=== PATIENT | female | born 1950 | race American Indian/Alaskan Native ===

== ENCOUNTER 2019-04-12 21:43 | Inpatient (IN) | payer MEDICARE ==
--- NOTE | 2019-04-12 21:48 | Emergency Department Report ---
ED Neuro Deficit HPI - General Chief Complaint: Neuro Symptoms/Deficit Stated Complaint: STROKE Time Seen by Provider: 04/12/19 21:45 Source: family, EMS (verbal report received from EMS. EMS documentation not available at time of chart dictation ), RN notes reviewed Mode of arrival: Stretcher Limitations: Physical Limitation - History of Present Illness Initial Comments: This is a 68-year-old female. This patient is not known to this provider previo usly. History obtained from EMS, and the patient's daughter. Apparently, the patient has a history of dementia, presumably end-stage, cannot speak, cannot walk and is typically bedbound. Patient not able to follow commands, and is therefore not able to participate in physical therapy. She may also have a history of seizures, and was previously on Keppra, and is not currently on Keppra. Patient brought to the hospital by EMS for possible code stroke. As per verbal report from EMS, who reports verbal report from the patient's residential, last known well time is 7:30 PM this evening, apparently, patient was found or developed altered mental status at 7:30 PM, and was found to have a lef t-sided facial droop and right-sided weakness. Patient's Accu-Chek was 184 in the field. Upon arrival to the emergency room, no obvious facial droop is appreciated. She is moving her right arm sluggishly. She has nonspecific clonic movements in her bilateral lower extremities. Stroke is called overhead, and the patient is evaluated by our stroke neurologist, Dr. Paredes He called up the patient's residential, and establish the last known well time to be sometime between 4:00 and 5:30 PM this afternoon. In addition, there may been a convulsive event. The patient is accompanied by her daughter. The patient is nonverbal at this time. She is now moving 4 extremities. She moans in response to painful stimulus. She is protecting her airway. Patient not able to describe exacerbating or relieving factors, or qualitative nature of her symptoms. -: This afternoon Location: other Place: other Quality: other Improves With: other Worsens With: other Context: other - Related Data Home Medications: Home Medications Medication Instructions Recorded Confirmed Last Taken Aleve 220 mg PO BID PRN 04/13/19 04/13/19 Unknown Aspirin 81 mg PO DAILY 04/13/19 04/13/19 Unknown Memantine 28 mg PO DAILY 04/13/19 04/13/19 Unknown Metoprolol SUCCINATE ER TAB 50 mg PO DAILY 04/13/19 04/13/19 Unknown Pantoprazole 40 mg PO DAILY 04/13/19 04/13/19 Unknown Sertraline HCl 100 mg PO HS 04/13/19 04/13/19 Unknown Simvastatin 20 mg PO DAILY 04/13/19 04/13/19 Unknown Allergies/Adverse Reactions: Allergies Allergy/AdvReac Type Severity Reaction Status Date / Time No Known Allergies Allergy Verified 04/12/19 22:29 ED Review of Systems ROS: Stated complaint: STROKE Other details as noted in HPI Comment: Unobtainable due to pts medical conditions Neurological: confusion, other (convulsion, possible seizure, altered mental status) ED Past Medical Hx - Medications Home Medications: Home Medications Medication Instructions Recorded Confirmed Last Taken Type Aleve 220 mg PO BID PRN 04/13/19 04/13/19 Unknown History Aspirin 81 mg PO DAILY 04/13/19 04/13/19 Unknown History Memantine 28 mg PO DAILY 04/13/19 04/13/19 Unknown History Metoprolol SUCCINATE ER TAB 50 mg PO DAILY 04/13/19 04/13/19 Unknown History Pantoprazole 40 mg PO DAILY 04/13/19 04/13/19 Unknown History Sertraline HCl 100 mg PO HS 04/13/19 04/13/19 Unknown History Simvastatin 20 mg PO DAILY 04/13/19 04/13/19 Unknown History ED Neuro Physical Exam - General Limitations: Altered Mental Status, Physical Limitation General appearance: lethargic Suspected Stroke: No - Head Head exam: Present: atraumatic, normocephalic - Eye Eye exam: Present: normal appearance, PERRL - ENT ENT exam: Present: normal orophraynx, mucous membranes dry, normal external ear exam - Neck Neck exam: Present: normal inspection, full ROM. Absent: tenderness, meningismus - Respiratory Respiratory exam: Present: decreased breath sounds. Absent: respiratory distress, wheezes, rales, rhonchi, stridor - Cardiovascular Cardiovascular Exam: Present: regular rate, normal rhythm, normal heart sounds. Absent: bradycardia, tachycardia, irregular rhythm, systolic murmur, diastolic murmur, rubs, gallop - GI/Abdominal GI/Abdominal exam: Present: soft. Absent: distended, tenderness, guarding, rebound, rigid, pulsatile mass - Extremities Exam Extremities exam: Present: normal inspection, pedal edema, other (2+ pulses noted in the bilateral upper, lower extremities. There is no long bone tenderness. Musculoskeletal compartments are soft. The pelvis is stable.). Absent: calf tenderness - Back Exam Back exam: Present: normal inspection. Absent: tenderness, CVA tenderness (R), CVA tenderness (L), paraspinal tenderness, vertebral tenderness - Neurological Exam Neurological exam: Present: altered, other (there is no facial droop. Patient withdraws for cavities to painful stimuli. She is nonverbal. Detailed neurologic examination is not possible secondary to altered mental status, and dementia) - NIHSS Assessment Interval: Baseline 1a. Level of Consciousness: arousable/minor stimuli 1b. LOC Questions: answers no questions correctly 1c. LOC Commands: performs no tasks correctly 2. Best Gaze: forced deviation (unable to assess) 3. Visual: bilateral hemianopia (unable to assess) 4. Facial Palsy: normal symmetrical movement 5b. Motor Arm Right: some gravity effort 5a. Motor Arm Left: some gravity effort 6a. Motor Leg Left: some gravity effort 6b. Motor Leg Right: some gravity effort 7. Limb Ataxia: amputation (unable to assess) 8. Sensory: mild/moderate sensory loss (withdraws to painful stimuli) 9. Best Language: severe aphasia (the patient is nonverbal but grossly response to painful stimuli) 10. Dysarthria: mild/moderate dysarthria 11. Extinction/Inattention: profound inattention Total Score: 24 Stroke Severity: Severe Stroke - Psychiatric Psychiatric exam: Present: anxious - Skin Skin exam: Present: warm, dry, intact, normal color. Absent: rash ED Course Vital Signs 04/12/19 04/12/19 04/12/19 21:47 21:59 22:00 Temperature 98.6 F 98.6 F Pulse Rate 81 Respiratory 19 16 Rate Blood Pressure O2 Sat by Pulse 99 Oximetry 04/12/19 04/12/19 04/12/19 22:16 22:30 22:45 Temperature Pulse Rate 80 78 74 Respiratory 21 33 H 21 Rate Blood Pressure 149/77 163/95 137/110 O2 Sat by Pulse 99 94 98 Oximetry 04/12/19 04/12/19 04/12/19 23:00 23:16 23:30 Temperature Pulse Rate 82 83 74 Respiratory 18 19 18 Rate Blood Pressure 137/110 171/90 161/88 O2 Sat by Pulse 98 96 99 Oximetry 04/12/19 04/12/19 04/13/19 23:31 23:50 00:00 Temperature Pulse Rate 81 Respiratory 10 L Rate Blood Pressure 161/88 161/88 161/88 O2 Sat by Pulse 98 95 Oximetry 04/13/19 04/13/19 04/13/19 00:16 00:18 00:30 Temperature Pulse Rate 81 Respiratory 20 Rate Blood Pressure 171/99 171/99 161/88 O2 Sat by Pulse 99 100 98 Oximetry 04/13/19 04/13/19 04/13/19 00:45 01:00 01:15 Temperature Pulse Rate 72 68 83 Respiratory 25 H 16 24 Rate Blood Pressure 169/106 159/87 159/87 O2 Sat by Pulse 99 100 95 Oximetry 04/13/19 04/13/19 04/13/19 01:30 01:46 02:00 Temperature Pulse Rate 104 H 73 80 Respiratory 26 H 21 27 H Rate Blood Pressure 152/107 152/100 153/90 O2 Sat by Pulse 93 98 90 Oximetry 04/13/19 04/13/19 04/13/19 02:16 02:30 02:46 Temperature Pulse Rate 86 105 H 72 Respiratory 16 18 18 Rate Blood Pressure 139/96 149/106 154/81 O2 Sat by Pulse 98 96 100 Oximetry 04/13/19 04/13/19 04/13/19 03:00 03:16 03:30 Temperature 98.4 F Pulse Rate 81 91 H 89 Respiratory 25 H 13 18 Rate Blood Pressure 158/92 136/107 153/103 O2 Sat by Pulse 92 94 96 Oximetry 04/13/19 04/13/19 04/13/19 03:46 04:00 04:16 Temperature Pulse Rate 117 H 75 81 Respiratory 12 17 14 Rate Blood Pressure 144/62 131/71 139/80 O2 Sat by Pulse 93 99 100 Oximetry 04/13/19 04/13/19 04/13/19 04:30 04:46 05:00 Temperature Pulse Rate 83 81 70 Respiratory 17 21 16 Rate Blood Pressure 138/104 123/94 136/64 O2 Sat by Pulse 98 96 99 Oximetry 04/13/19 05:16 Temperature Pulse Rate 74 Respiratory 21 Rate Blood Pressure 131/87 O2 Sat by Pulse 99 Oximetry - Reevaluation(s) Reevaluation #1: 04/12/19 22:41 Differential diagnosis, including but not limited to: Stroke, seizure, pneumonia, urinary tract infection, dementia, myoclonic jerks, electrolyte derangement Assessment and plan: 68-year-old female, demented, nonverbal, bedbound, very poor functional status at baseline, not a TPA candidate secondary to presenting more than 4.5 hours after last known well time. Suspect the patient had a seizure, and was likely postictal. Patient seen in conjunction with stroke neurologist, Dr. Paredes who agrees the patient is not a TPA candidate. Furthermore, discussed risks of tPA, including benefits, with patient's daughter, who states that she does not want TPA. Even though the patient is bed bound, demented, and poorly mobile, and emergent CT angiogram is recommended to evaluate for possible large vessel occlusion. Patient not able to provide informed consent, therefore, patient started myself discussed the risks and benefits, including contrast nephropathy, renal failure, need for dialysis, and possible allergic reaction/anaphylaxis. Nevertheless, the patient's daughter has provided informed consent for emergent CT angiogram. Patient loaded with Keppra. Initial CT scan of the brain had a lot of motion artifact, therefore, she'll be medicated with versed Reevaluation #2: 04/12/19 22:44 Magnesium supplementation ordered. Elevated troponin likely secondary to type II troponin leak. EKG not consistent with STEMI. Reevaluation #3: 04/13/19 00:07 X-ray of the chest is reviewed and appreciated. Patient does not have crackles or rales. IV fluids were ordered given the patient is receiving large contrast bolus for angiogram. Reevaluation #4: 04/13/19 01:31 No additional seizures noted so far. CT angiogram neck is negative at this ti me. CT angiogram limited, no gross large vessel occlusion noted. Reevaluation #5: 04/13/19 01:47 Dr Erich Dewey to admit - Lab Data Result diagrams: 04/12/19 21:59 04/12/19 21:59 Lab Results 04/12/19 04/12/19 04/12/19 Range/Units 21:59 21:59 21:59 WBC 4.9 (4.5-11.0) K/mm3 RBC 4.32 (3.65-5.03) M/mm3 Hgb 11.8 (10.1-14.3) gm/dl Hct 38.0 (30.3-42.9) % MCV 88 (79-97) fl MCH 27 L (28-32) pg MCHC 31 (30-34) % RDW 18.7 H (13.2-15.2) % Plt Count 171 (140-440) K/mm3 Lymph % (Auto) 25.8 (13.4-35.0) % [place] % (Auto) 8.1 H (0.0-7.3) % Eos % (Auto) 0.0 (0.0-4.3) % Baso % (Auto) 1.0 (0.0-1.8) % Lymph # 1.3 (1.2-5.4) K/mm3 [place] # 0.4 (0.0-0.8) K/mm3 Eos # 0.0 (0.0-0.4) K/mm3 Baso # 0.0 (0.0-0.1) K/mm3 Seg Neutrophils % 65.1 (40.0-70.0) % Seg Neutrophils # 3.2 (1.8-7.7) K/mm3 PT 19.4 H (12.2-14.9) Sec. INR 1.68 H (0.87-1.13) APTT 27.7 (24.2-36.6) Sec. Thrombin Time 16.5 (15.1-19.6) Sec. Sodium 144 (137-145) mmol/L Potassium 3.8 (3.6-5.0) mmol/L Chloride 107.1 H (98-107) mmol/L Carbon Dioxide 20 L (22-30) mmol/L Anion Gap 21 mmol/L BUN 16 (7-17) mg/dL Creatinine 0.6 L (0.7-1.2) mg/dL Estimated GFR > 60 ml/min BUN/Creatinine Ratio 27 % Glucose 193 H (65-100) mg/dL POC Glucose (70-105) Calcium 8.9 (8.4-10.2) mg/dL Magnesium (1.7-2.3) mg/dL Total Bilirubin 1.40 H (0.1-1.2) mg/dL AST 27 (5-40) units/L ALT 16 (7-56) units/L Alkaline Phosphatase 74 (35-129) units/L Total Creatine Kinase 93 (30-135) units/L CK-MB (CK-2) 2.3 (0.0-4.0) ng/mL CK-MB (CK-2) Rel Index 2.4 (0-4) Troponin T 0.058 H (0.00-0.029) ng/mL Total Protein 6.2 L (6.3-8.2) g/dL Albumin 3.2 L (3.9-5) g/dL Albumin/Globulin Ratio 1.1 % Triglycerides 116 (2-149) mg/dL Cholesterol 156 (50-199) mg/dL LDL Cholesterol Direct 90 (50-130) mg/dL HDL Cholesterol 55 (40-59) mg/dL Cholesterol/HDL Ratio 2.83 % Urine Color (Yellow) Urine Turbidity (Clear) Urine pH (5.0-7.0) Ur Specific [place] (1.003-1.030) Urine Protein (Negative) mg/dL Urine Glucose (UA) (Negative) mg/dL Urine Ketones (Negative) mg/dL Urine Blood (Negative) Urine Nitrite (Negative) Urine Bilirubin (Negative) Urine Ictotest (Negative) Urine Urobilinogen (<2.0) mg/dL Ur Leukocyte Esterase (Negative) Urine WBC (Auto) (0.0-6.0) /HPF Urine RBC (Auto) (0.0-6.0) /HPF U Epithel Cells (Auto) (0-13.0) /HPF Urine Mucus /HPF Salicylates (2.8-20.0) mg/dL Urine Opiates Screen Urine Methadone Screen Acetaminophen (10.0-30.0) ug/mL Ur Barbiturates Screen Ur Phencyclidine Scrn Ur Amphetamines Screen U Benzodiazepines Scrn Urine Cocaine Screen U Marijuana (THC) Screen Drugs of Abuse Note Plasma/Serum Alcohol (0-0.07) % 04/12/19 04/12/19 04/12/19 Range/Units 21:59 21:59 21:59 WBC (4.5-11.0) K/mm3 RBC (3.65-5.03) M/mm3 Hgb (10.1-14.3) gm/dl Hct (30.3-42.9) % MCV (79-97) fl MCH (28-32) pg MCHC (30-34) % RDW (13.2-15.2) % Plt Count (140-440) K/mm3 Lymph % (Auto) (13.4-35.0) % [place] % (Auto) (0.0-7.3) % Eos % (Auto) (0.0-4.3) % Baso % (Auto) (0.0-1.8) % Lymph # (1.2-5.4) K/mm3 [place] # (0.0-0.8) K/mm3 Eos # (0.0-0.4) K/mm3 Baso # (0.0-0.1) K/mm3 Seg Neutrophils % (40.0-70.0) % Seg Neutrophils # (1.8-7.7) K/mm3 PT (12.2-14.9) Sec. INR (0.87-1.13) APTT (24.2-36.6) Sec. Thrombin Time (15.1-19.6) Sec. Sodium (137-145) mmol/L Potassium (3.6-5.0) mmol/L Chloride (98-107) mmol/L Carbon Dioxide (22-30) mmol/L Anion Gap mmol/L BUN (7-17) mg/dL Creatinine (0.7-1.2) mg/dL Estimated GFR ml/min BUN/Creatinine Ratio % Glucose (65-100) mg/dL POC Glucose (70-105) Calcium (8.4-10.2) mg/dL Magnesium 1.60 L (1.7-2.3) mg/dL Total Bilirubin (0.1-1.2) mg/dL AST (5-40) units/L ALT (7-56) units/L Alkaline Phosphatase (35-129) units/L Total Creatine Kinase 88 (30-135) units/L CK-MB (CK-2) (0.0-4.0) ng/mL CK-MB (CK-2) Rel Index (0-4) Troponin T (0.00-0.029) ng/mL Total Protein (6.3-8.2) g/dL Albumin (3.9-5) g/dL Albumin/Globulin Ratio % Triglycerides (2-149) mg/dL Cholesterol (50-199) mg/dL LDL Cholesterol Direct (50-130) mg/dL HDL Cholesterol (40-59) mg/dL Cholesterol/HDL Ratio % Urine Color (Yellow) Urine Turbidity (Clear) Urine pH (5.0-7.0) Ur Specific [place] (1.003-1.030) Urine Protein (Negative) mg/dL Urine Glucose (UA) (Negative) mg/dL Urine Ketones (Negative) mg/dL Urine Blood (Negative) Urine Nitrite (Negative) Urine Bilirubin (Negative) Urine Ictotest (Negative) Urine Urobilinogen (<2.0) mg/dL Ur Leukocyte Esterase (Negative) Urine WBC (Auto) (0.0-6.0) /HPF Urine RBC (Auto) (0.0-6.0) /HPF U Epithel Cells (Auto) (0-13.0) /HPF Urine Mucus /HPF Salicylates < 0.3 L (2.8-20.0) mg/dL Urine Opiates Screen Urine Methadone Screen Acetaminophen (10.0-30.0) ug/mL Ur Barbiturates Screen Ur Phencyclidine Scrn Ur Amphetamines Screen U Benzodiazepines Scrn Urine Cocaine Screen U Marijuana (THC) Screen Drugs of Abuse Note Plasma/Serum Alcohol < 0.01 (0-0.07) % 04/12/19 04/12/19 04/12/19 Range/Units 21:59 22:06 23:10 WBC (4.5-11.0) K/mm3 RBC (3.65-5.03) M/mm3 Hgb (10.1-14.3) gm/dl Hct (30.3-42.9) % MCV (79-97) fl MCH (28-32) pg MCHC (30-34) % RDW (13.2-15.2) % Plt Count (140-440) K/mm3 Lymph % (Auto) (13.4-35.0) % [place] % (Auto) (0.0-7.3) % Eos % (Auto) (0.0-4.3) % Baso % (Auto) (0.0-1.8) % Lymph # (1.2-5.4) K/mm3 [place] # (0.0-0.8) K/mm3 Eos # (0.0-0.4) K/mm3 Baso # (0.0-0.1) K/mm3 Seg Neutrophils % (40.0-70.0) % Seg Neutrophils # (1.8-7.7) K/mm3 PT (12.2-14.9) Sec. INR (0.87-1.13) APTT (24.2-36.6) Sec. Thrombin Time (15.1-19.6) Sec. Sodium (137-145) mmol/L Potassium (3.6-5.0) mmol/L Chloride (98-107) mmol/L Carbon Dioxide (22-30) mmol/L Anion Gap mmol/L BUN (7-17) mg/dL Creatinine (0.7-1.2) mg/dL Estimated GFR ml/min BUN/Creatinine Ratio % Glucose (65-100) mg/dL POC Glucose 182 H (70-105) Calcium (8.4-10.2) mg/dL Magnesium (1.7-2.3) mg/dL Total Bilirubin (0.1-1.2) mg/dL AST (5-40) units/L ALT (7-56) units/L Alkaline Phosphatase (35-129) units/L Total Creatine Kinase (30-135) units/L CK-MB (CK-2) (0.0-4.0) ng/mL CK-MB (CK-2) Rel Index (0-4) Troponin T (0.00-0.029) ng/mL Total Protein (6.3-8.2) g/dL Albumin (3.9-5) g/dL Albumin/Globulin Ratio % Triglycerides (2-149) mg/dL Cholesterol (50-199) mg/dL LDL Cholesterol Direct (50-130) mg/dL HDL Cholesterol (40-59) mg/dL Cholesterol/HDL Ratio % Urine Color [place] (Yellow) Urine Turbidity Slightly-cloudy (Clear) Urine pH 5.0 (5.0-7.0) Ur Specific [place] 1.032 H (1.003-1.030) Urine Protein 100 mg/dl (Negative) mg/dL Urine Glucose (UA) Neg (Negative) mg/dL Urine Ketones Neg (Negative) mg/dL Urine Blood Lg (Negative) Urine Nitrite Neg (Negative) Urine Bilirubin Sm (Negative) Urine Ictotest Negative (Negative) Urine Urobilinogen 4.0 (<2.0) mg/dL Ur Leukocyte Esterase Neg (Negative) Urine WBC (Auto) 5.0 (0.0-6.0) /HPF Urine RBC (Auto) 56.0 (0.0-6.0) /HPF U Epithel Cells (Auto) 10.0 (0-13.0) /HPF Urine Mucus Few /HPF Salicylates (2.8-20.0) mg/dL Urine Opiates Screen Urine Methadone Screen Acetaminophen < 5.0 L (10.0-30.0) ug/mL Ur Barbiturates Screen Ur Phencyclidine Scrn Ur Amphetamines Screen U Benzodiazepines Scrn Urine Cocaine Screen U Marijuana (THC) Screen Drugs of Abuse Note Plasma/Serum Alcohol (0-0.07) % 04/12/19 Range/Units 23:10 WBC (4.5-11.0) K/mm3 RBC (3.65-5.03) M/mm3 Hgb (10.1-14.3) gm/dl Hct (30.3-42.9) % MCV (79-97) fl MCH (28-32) pg MCHC (30-34) % RDW (13.2-15.2) % Plt Count (140-440) K/mm3 Lymph % (Auto) (13.4-35.0) % [place] % (Auto) (0.0-7.3) % Eos % (Auto) (0.0-4.3) % Baso % (Auto) (0.0-1.8) % Lymph # (1.2-5.4) K/mm3 [place] # (0.0-0.8) K/mm3 Eos # (0.0-0.4) K/mm3 Baso # (0.0-0.1) K/mm3 Seg Neutrophils % (40.0-70.0) % Seg Neutrophils # (1.8-7.7) K/mm3 PT (12.2-14.9) Sec. INR (0.87-1.13) APTT (24.2-36.6) Sec. Thrombin Time (15.1-19.6) Sec. Sodium (137-145) mmol/L Potassium (3.6-5.0) mmol/L Chloride (98-107) mmol/L Carbon Dioxide (22-30) mmol/L Anion Gap mmol/L BUN (7-17) mg/dL Creatinine (0.7-1.2) mg/dL Estimated GFR ml/min BUN/Creatinine Ratio % Glucose (65-100) mg/dL POC Glucose (70-105) Calcium (8.4-10.2) mg/dL Magnesium (1.7-2.3) mg/dL Total Bilirubin (0.1-1.2) mg/dL AST (5-40) units/L ALT (7-56) units/L Alkaline Phosphatase (35-129) units/L Total Creatine Kinase (30-135) units/L CK-MB (CK-2) (0.0-4.0) ng/mL CK-MB (CK-2) Rel Index (0-4) Troponin T (0.00-0.029) ng/mL Total Protein (6.3-8.2) g/dL Albumin (3.9-5) g/dL Albumin/Globulin Ratio % Triglycerides (2-149) mg/dL Cholesterol (50-199) mg/dL LDL Cholesterol Direct (50-130) mg/dL HDL Cholesterol (40-59) mg/dL Cholesterol/HDL Ratio % Urine Color (Yellow) Urine Turbidity (Clear) Urine pH (5.0-7.0) Ur Specific [place] (1.003-1.030) Urine Protein (Negative) mg/dL Urine Glucose (UA) (Negative) mg/dL Urine Ketones (Negative) mg/dL Urine Blood (Negative) Urine Nitrite (Negative) Urine Bilirubin (Negative) Urine Ictotest (Negative) Urine Urobilinogen (<2.0) mg/dL Ur Leukocyte Esterase (Negative) Urine WBC (Auto) (0.0-6.0) /HPF Urine RBC (Auto) (0.0-6.0) /HPF U Epithel Cells (Auto) (0-13.0) /HPF Urine Mucus /HPF Salicylates (2.8-20.0) mg/dL Urine Opiates Screen Presumptive negative Urine Methadone Screen Presumptive negative Acetaminophen (10.0-30.0) ug/mL Ur Barbiturates Screen Presumptive negative Ur Phencyclidine Scrn Presumptive negative Ur Amphetamines Screen Presumptive negative U Benzodiazepines Scrn Presumptive negative Urine Cocaine Screen Presumptive negative U Marijuana (THC) Screen Presumptive negative Drugs of Abuse Note Disclamer Plasma/Serum Alcohol (0-0.07) % - EKG Data -: EKG Interpreted by Ar EKG shows normal: sinus rhythm Rate: normal When compared to previous EKG there are: previous EKG unavailable 04/12/19 22:43 There is no prior EKG available for comparison. This is a sinus rhythm, with a left axis deviation, the QTC is within normal limits, there is poor R wave progression, there is motion artifact, there is low voltage, the EKG is abnormal, the EKG is not consistent with ST elevation myocardial infarction. - Radiology Data Radiology results: report reviewed, image reviewed Referring Physician: TONI TADEO Patient Name: SHERIDAN AHN Date of : 1950 Sex: Female Report Date: 2019-04-12 Report Status: Finalized Findings [facility] [address] [place] [address] Cat Scan Report Signed Patient: SHERIDAN AHN MR#: [id number] 3 : 1950 Acct:[id number] Age/Sex: 68 / F ADM Date: 04/12/19 Loc: ED Attending Dr: Ordering Physician: TONI TADEO MD Date of Service: 04/12/19 Procedure(s): CT head/brain wo con Accession Number(s): [id number] cc: TONI TADEO MD CT head/brain wo con INDICATION: Stroke symptoms. TECHNIQUE: Routine CT head without contrast. Sagittal and coronal reformatted images were obtained. All CT scans at this location are performed using CT dose reduction for ALARA by means of automated exposure control. COMPARISON: None. FINDINGS: Limited CT scan of the brain. Transverse images were repeated 3 times. Still most of these images are marred by motion related artifacts. BRAIN / INTRACRANIAL CONTENTS: No acute hemorrhage, mass effect, midline shift, hydrocephalus, or acute, large territorial infarct. Generalized cortical involution is seen. Temporal horn tips are dilated suggesting moderate volume loss in the medial temporal lobes. Volume loss is also seen in the cerebellar vermis. Extensive periventricular low density areas are seen due to microvascular angiopathy. CRANIOCERVICAL JUNCTION: No significant abnormality. ORBITS: No significant abnormality of visualized orbits. SINUSES / MASTOIDS: No significant abnormality of the visualized paranasal sinus es or mastoid air cells. ADDITIONAL FINDINGS: None. IMPRESSION: Very limited CT scan of the brain No large space taking lesion in the brain I have discussed findings with the Dr. Tadeo at 9:20 PM CDT. Signer Name: Mike Swan MD Signed: 04/12/2019 10:22 PM Workstation Name: [id number] Transcribed By: BS Dictated By: Mike Linda MD Electronically Authenticated By: Mike Linda MD Signed Date/Time: 04/12/19 2222 Print Report Referring Physician: TONI TADEO Patient Name: SHERIDAN AHN Date of : 1950 Sex: Female Report Date: 2019-04-12 Report Status: Finalized Findings [address] [address] XRay Report Signed Patient: SHERIDAN AHN MR#: [id number] 3 : 1950 Acct:[id number] Age/Sex: 68 / F ADM Date: 04/12/19 Loc: ED Attending Dr: Ordering Physician: TONI TADEO MD Date of Service: 04/12/19 Procedure(s): XR chest 1V ap Accession Number(s): [id number] cc: TONI TADEO MD Fluoro Time In Minutes: CHEST 1 VIEW 04/12/2019 11:11 PM INDICATION / CLINICAL INFORMATION: cva. COMPARISON: None available. FINDINGS: SUPPORT DEVICES: None. HEART / MEDIASTINUM: Cardiac silhouette is moderately enlarged. LUNGS / PLEURA: Mild interstitial edema and small bilateral pleural effusions No pneumothorax. ADDITIONAL FINDINGS: No significant additional findings. IMPRESSION: 1. Mild CHF Signer Name: Yevgeniy Lemus MD Signed: 04/12/2019 11:56 PM Workstation Name: [id number] Transcribed By: TL Dictated By: Yvegeniy Lemus MD Electronically Authenticated By: Yevgeniy Lemus MD Signed Date/Time: 04/12/[id number] [address] Cat Scan Report Signed Patient: SHERIDAN AHN MR#: [id number] 3 : 1950 Acct:[id number] Age/Sex: 68 / F ADM Date: 04/12/19 Loc: ED Attending Dr: Ordering Physician: TONI TADEO MD Date of Service: 04/12/19 Procedure(s): CT angio neck Accession Number(s): [id number] cc: TONI TADEO MD CTA NECK WITH CONTRAST HISTORY: Worsening mental status changes COMPARISON: None. TECHNIQUE: Routine CTA of the neck was performed. 3-D/MIP reformats were postprocessed. Percentage stenosis is determined by direct quantitative measurements of diseased internal carotid artery diameter compared with normal distal internal carotid artery reference segments or by criteria similar to NASCET where applicable. All CT scans at this location are performed using CT dose reduction for ALARA by means of automated exposure control. CONTRAST: 100 ml of Omnipaque 350 FINDINGS: Aortic arch: No significant abnormality. Cervical vertebral arteries: Right vertebral origin is normal. Calcified atheromatous plaque is seen in the origin of the left vertebral artery. Extraosseous, foraminal segments are normal bilaterally. Common carotid arteries: No significant abnormality. Carotid bifurcations: On the right side, nonstenotic calcified atheromatous plaque is seen in the proximal right internal carotid artery. On the left side, carotid bifurcation is normal. Cervical internal carotid arteries: No significant abnormality. Additional findings: Pleural thickening is seen bilaterally. IMPRESSION: Normal carotid bifurcations Signer Name: Mike Swan MD Signed: 04/13/2019 12:50 AM Workstation Name: [id number] Transcribed By: BS Dictated By: Mike Linda MD Electronically Authenticated By: Mike Linda MD Signed Date/Time: 04/13/19 0050 Referring Physician: TONI TADEO Patient Name: SHERIDAN AHN Date of : 1950 Sex: Female Report Date: 2019-04-13 Report Status: Finalized Findings [facility] [address] [place] [address] Cat Scan Report Signed Patient: SHERIDAN AHN MR#: [id number] 3 : 1950 Acct:[id number] Age/Sex: 68 / F ADM Date: 04/12/19 Loc: ED Attending Dr: Ordering Physician: TONI TDAEO MD Date of Service: 04/12/19 Procedure(s): CT angio head Accession Number(s): [id number] cc: TONI TADEO MD CTA HEAD WITH CONTRAST HISTORY: Worsening of mental status changes COMPARISON: None. TECHNIQUE: Routine non-contrast CT Head, CTA of the head and post-contrast CT Head are performed. 3-D/MIP reformats postprocessed. All CT scans at this location are performed using CT dose reduction for ALARA by means of automated exposure control. CONTRAST: 100 ml of Omnipaque 350 FINDINGS: Please note this is a very limited CTA of the brain because of motion related artifacts. CTA Head: Intracranial vertebral arteries: No significant abnormality. Basilar artery: Proximal basilar artery is not seen well. However, distal basilar artery fused to be normal. Posterior cerebral arteries: P1 and P2 segments of posterior cerebral arteries are normal. Intracranial internal carotid arteries: Motion related artifacts obscure the details of internal carotid arteries, A1 and M1 segments Additional findings: None. IMPRESSION: Extremely limited CTA of the brain due to motion related artifacts Basilar artery is patent I am unable to evaluate the carotid arteries. Signer Name: Mike Swan MD Signed: 04/13/2019 12:58 AM Workstation Name: [id number] - Thrombolytic Inclusion/Exclusion Thrombolytic Exclusion Criteria: Symptom Onset > 3 Hours Critical Care Time: Yes Critical care time in (mins) excluding proc time.: 35 Critical care attestation.: If time is entered above; I have spent that time in minutes in the direct care of this critically ill patient, excluding procedure time. ED Disposition Clinical Impression: Convulsion, Dementia Disposition: - OP ADMIT IP TO THIS HOSP Is pt being admited?: Yes Condition: Fair
[2019-04-12 22:08] LABS: Hemoglobin 11.8 gm/dl (10.1-14.3); Lymphocytes # (Auto) 1.3 K/mm3 (1.2-5.4); Lymphocytes % (Auto) 25.8 % (13.4-35.0); Mean Corpuscular HGB Conc 31 % (30-34); Mean Corpuscular Volume 88 fl (79-97); Monocytes # (Auto) 0.4 K/mm3 (0.0-0.8); Monocytes % (Auto) 8.1 % (0.0-7.3); Platelet Count 171 K/mm3 (140-440); Red Blood Count 4.32 M/mm3 (3.65-5.03); Red Cell Distribution Width 18.7 % (13.2-15.2)
[2019-04-12] MEDS ORDERED: KEPPRA 1,000 MG/NS 0.75% 100ML 1,000 MG/100 ML BAG IV ONE (22:09)
[2019-04-12 22:19] LABS: INR 1.68 (0.87-1.13)
[2019-04-12 22:22] LABS: Creatine Kinase MB 2.3 ng/mL (0.0-4.0)
[2019-04-12 22:24] LABS: Alanine Aminotransferase 16 units/L (7-56); Albumin 3.2 g/dL (3.9-5); BUN/Creatinine Ratio 27; Blood Urea Nitrogen 16 mg/dL (7-17); Calcium 8.9 mg/dL (8.4-10.2); Hemolysis Index 41
--- NOTE | 2019-04-12 22:27 | Cat Scan Report ---
CT head/brain wo con INDICATION: Stroke symptoms. TECHNIQUE: Routine CT head without contrast. Sagittal and coronal reformatted images were obtained. A ll CT scans at this location are performed using CT dose reduction for ALARA by means of automated ex posure control. COMPARISON: None. FINDINGS: Limited CT scan of the brain. Transverse images were repeated 3 times. Still most of these images are marred by motion related artifacts. BRAIN / INTRACRANIAL CONTENTS: No acute hemorrhage, mass effect, midline shift, hydrocephalus, or acu te, large territorial infarct. Generalized cortical involution is seen. Temporal horn tips are dilate d suggesting moderate volume loss in the medial temporal lobes. Volume loss is also seen in the cereb ellar vermis. Extensive periventricular low density areas are seen due to microvascular angiopathy. CRANIOCERVICAL JUNCTION: No significant abnormality. ORBITS: No significant abnormality of visualized orbits. SINUSES / MASTOIDS: No significant abnormality of the visualized paranasal sinuses or mastoid air maura ls. ADDITIONAL FINDINGS: None. IMPRESSION: Very limited CT scan of the brain No large space taking lesion in the brain I have discussed findings with the Dr. Tadeo at 9:20 PM CDT. Signer Name: Mike Swan MD Signed: 04/12/2019 10:22 PM Workstation Name: [id number]
[2019-04-12] MEDS ORDERED: MAGNESIUM SULFATE 2GM/50ML 2 GM/50 ML BAG IV ONE (22:36)
[2019-04-12 22:40] LABS: Thrombin Time 16.5 Sec. (15.1-19.6)
[2019-04-12] MEDS ORDERED: NACL 0.9% 500 ML 500 ML IV ONE (22:45)
[2019-04-12 22:48] LABS: Partial Thromboplastin Time 27.7 Sec. (24.2-36.6)
[2019-04-12] MEDS ORDERED: VERSED IV NR (23:00)
[2019-04-12 23:11] LABS: Chol/HDL Ratio 2.83 %; HDL Cholesterol 55 mg/dL (40-59); LDL Cholesterol,Direct 90 mg/dL (50-130)
[2019-04-12 23:27] LABS: Bilirubin,Urine SM (Negative); Blood,Urine LG (Negative); Color,Urine Amber (Yellow); Mucus,Urine FEW /HPF
[2019-04-12 23:33] LABS: Ictotest,Urine Negative (Negative)
[2019-04-12 23:35] LABS: Amphetamine Screen,Urine PRESUMPTIVE NEGATIVE; Benzodiazepines Screen,Urine PRESUMPTIVE NEGATIVE; Cannabinoid Screen,Urine PRESUMPTIVE NEGATIVE; Cocaine Screen,Urine PRESUMPTIVE NEGATIVE; Methadone Screen,Urine PRESUMPTIVE NEGATIVE; Opiate Screen,Urine PRESUMPTIVE NEGATIVE
--- NOTE | 2019-04-13 00:01 | XRay Report ---
CHEST 1 VIEW 04/12/2019 11:11 PM INDICATION / CLINICAL INFORMATION: cva. COMPARISON: None available. FINDINGS: SUPPORT DEVICES: None. HEART / MEDIASTINUM: Cardiac silhouette is moderately enlarged. LUNGS / PLEURA: Mild interstitial edema and small bilateral pleural effusions No pneumothorax. ADDITIONAL FINDINGS: No significant additional findings. IMPRESSION: 1. Mild CHF Signer Name: Yevgeniy Lemus MD Signed: 04/12/2019 11:56 PM Workstation Name: [id number]
--- NOTE | 2019-04-13 00:55 | Cat Scan Report ---
CTA NECK WITH CONTRAST HISTORY: Worsening mental status changes COMPARISON: None. TECHNIQUE: Routine CTA of the neck was performed. 3-D/MIP reformats were postprocessed. Percentage s tenosis is determined by direct quantitative measurements of diseased internal carotid artery diamete r compared with normal distal internal carotid artery reference segments or by criteria similar to NA SCET where applicable. All CT scans at this location are performed using CT dose reduction for ALARA by means of automated exposure control. CONTRAST: 100 ml of Omnipaque 350 FINDINGS: Aortic arch: No significant abnormality. Cervical vertebral arteries: Right vertebral origin is normal. Calcified atheromatous plaque is seen in the origin of the left vertebral artery. Extraosseous, foraminal segments are normal bilaterally. Common carotid arteries: No significant abnormality. Carotid bifurcations: On the right side, nonstenotic calcified atheromatous plaque is seen in the pro ximal right internal carotid artery. On the left side, carotid bifurcation is normal. Cervical internal carotid arteries: No significant abnormality. Additional findings: Pleural thickening is seen bilaterally. IMPRESSION: Normal carotid bifurcations Signer Name: Mike Swan MD Signed: 04/13/2019 12:50 AM Workstation Name: [id number]
--- NOTE | 2019-04-13 01:03 | Cat Scan Report ---
CTA HEAD WITH CONTRAST HISTORY: Worsening of mental status changes COMPARISON: None. TECHNIQUE: Routine non-contrast CT Head, CTA of the head and post-contrast CT Head are performed. 3-D /MIP reformats postprocessed. All CT scans at this location are performed using CT dose reduction for ALARA by means of automated exposure control. CONTRAST: 100 ml of Omnipaque 350 FINDINGS: Please note this is a very limited CTA of the brain because of motion related artifacts. CTA Head: Intracranial vertebral arteries: No significant abnormality. Basilar artery: Proximal basilar artery is not seen well. However, distal basilar artery fused to be normal. Posterior cerebral arteries: P1 and P2 segments of posterior cerebral arteries are normal. Intracranial internal carotid arteries: Motion related artifacts obscure the details of internal [place] arteries, A1 and M1 segments Additional findings: None. IMPRESSION: Extremely limited CTA of the brain due to motion related artifacts Basilar artery is patent I am unable to evaluate the carotid arteries. Signer Name: Mike Swan MD Signed: 04/13/2019 12:58 AM Workstation Name: [id number]
[2019-04-13] MEDS ORDERED: BABY ASPIRIN PO ONE (01:47)
[2019-04-13] MEDS ORDERED: IBUPROFEN PO ONE (03:31)
[2019-04-13] MEDS ORDERED: TORADOL IV ONE (03:32)
--- NOTE | 2019-04-13 03:40 | Emergency Department Report ---
ED Neuro Deficit HPI - General Chief Complaint: Neuro Symptoms/Deficit Stated Complaint: STROKE Time Seen by Provider: 04/12/19 21:45 Source: family, EMS (verbal report received from EMS. EMS documentation not available at time of chart dictation ), RN notes reviewed Mode of arrival: Stretcher Limitations: Altered Mental Status, Physical Limitation - History of Present Illness Initial Comments: [facility] Impression: 68 year old with altered mental status and right arm weakness,, and risks factors, and she said the time sensitive nature. 5:00 pm she was completely normal - she does rounds, every two hours. Outiside of the window for tPA, as now it is 10:06 She was recently taken off of the Keppra [address] angio head/neck is pending and negative as far as read is concerned, no evidence of large vessel occlusion, but motion degraded examination Right sided weakness that is noted. Comments: [phone] paged @[id number] online Recommendations: <220/110 Start antiplatelet if no obvious contraindication Stroke protocol admission/ orderset suggested with placement on stroke floor tele monitoring Bedside swallow evaluation HOB less than 30 degrees IV Fluid hydration with NS Euglycemia avoid hyperthermia, PRN acetaminophen dvt ppx Consider inpatient neurology consultation Discussed with ED MD Please call with questions CC History of Present Illness The patient was up and walking and taling at 7:00 pm she was found. She has dementia. 5:00 pm - 5:30 pm last known normal per [facility] Diagnostic: CT head is negative. Exam: Patient is in no apparent distress. Patient appears as stated age. No obvious acute respiratory or cardiac distress. Patient is well groomed and well- nourished. NIHSS score: 1A: Level of Consciousness - Requires repeated stimulation to arouse3 1B: Ask Month and Age - 0 Questions Right 2 1C: 'Blink Eyes' & 'Squeeze Hands' - Performs 0 Tasks 2 2: Test Horizontal Extraocular Movements - Partial Gaze Palsy: Corrects with Oculocephalic Reflex 0 3: Test Visual [place] - No Visual Loss 0 4: Test Facial Palsy - Normal symmetry 0 5A: Test Left Arm Motor Drift - Some Effort Against [place] 0 5B: Test Right Arm Motor Drift - Some Effort Against Gravity4 6A: Test Left Leg Motor Drift - Some Effort Against [place] 0 6B: Test Right Leg Motor Drift - Some Effort Against [place] 4 7: Test Limb Ataxia - Ataxia in 2 Limbs 0 8: Test Sensation - Complete Loss: Cannot Sense Being Touched At All 0 9: Test Language/Aphasia- Severe Aphasia: Fragmentary Expression, Inference Needed, Cannot Identify Materials 0 10: Test Dysarthria - Mute/Anarthric 0 11: Test Extinction/Inattention - Extinction to bilateral simultaneous stimulat ion 0 Medical Decision Making: - Extensive number of diagnosis or management options are considered above. - Extensive amount of complex data reviewed. - High risk of complication and/or morbidity or mortality are associated with differential diagnostic considerations above. - There may be Uncertain outcome and increased probability of prolonged functional impairment or high probability of severe prolonged functional impairment associated with some of these differential diagnosis. Medical Data Reviewed: 1.Data reviewed include clinical labs, radiology,Medical Tests; 2.Tests results discussed w/performing or interpreting physician; 3.Obtaining/reviewing old medical records; 4.Obtaining case history from another source; 5.Independent review of image, tracing or specimen Location: other Place: other Quality: other Improves With: other Worsens With: other - Related Data Home Medications: Home Medications Medication Instructions Recorded Confirmed Last Taken Aleve 220 mg PO BID PRN 04/13/19 04/13/19 Unknown Aspirin 81 mg PO DAILY 04/13/19 04/13/19 Unknown Memantine 28 mg PO DAILY 04/13/19 04/13/19 Unknown Metoprolol SUCCINATE ER TAB 50 mg PO DAILY 04/13/19 04/13/19 Unknown Pantoprazole 40 mg PO DAILY 04/13/19 04/13/19 Unknown Sertraline HCl 100 mg PO HS 04/13/19 04/13/19 Unknown Simvastatin 20 mg PO DAILY 04/13/19 04/13/19 Unknown Allergies/Adverse Reactions: Allergies Allergy/AdvReac Type Severity Reaction Status Date / Time No Known Allergies Allergy Verified 04/12/19 22:29 ED Review of Systems ROS: Stated complaint: STROKE Other details as noted in HPI Neurological: confusion, other (convulsion, possible seizure, altered mental status) ED Past Medical Hx - Social History Smoking Status: Never Smoker - Medications Home Medications: Home Medications Medication Instructions Recorded Confirmed Last Taken Type Aleve 220 mg PO BID PRN 04/13/19 04/13/19 Unknown History Aspirin 81 mg PO DAILY 04/13/19 04/13/19 Unknown History Memantine 28 mg PO DAILY 04/13/19 04/13/19 Unknown History Metoprolol SUCCINATE ER TAB 50 mg PO DAILY 04/13/19 04/13/19 Unknown History Pantoprazole 40 mg PO DAILY 04/13/19 04/13/19 Unknown History Sertraline HCl 100 mg PO HS 04/13/19 04/13/19 Unknown History Simvastatin 20 mg PO DAILY 04/13/19 04/13/19 Unknown History ED Neuro Physical Exam - General Limitations: Altered Mental Status, Physical Limitation General appearance: lethargic ED Course Vital Signs 04/12/19 04/12/19 04/12/19 21:59 22:00 22:16 Temperature 98.6 F Pulse Rate 81 80 Respiratory 19 15 21 Rate Blood Pressure 149/77 O2 Sat by Pulse 99 Oximetry 04/12/19 04/12/19 04/12/19 22:30 22:45 23:00 Temperature Pulse Rate 78 74 82 Respiratory 33 H 21 18 Rate Blood Pressure 163/95 137/110 137/110 O2 Sat by Pulse 94 98 98 Oximetry 04/12/19 04/12/19 04/12/19 23:16 23:30 23:50 Temperature Pulse Rate 83 74 81 Respiratory 19 18 10 L Rate Blood Pressure 171/90 161/88 161/88 O2 Sat by Pulse 96 99 98 Oximetry 04/13/19 04/13/19 00:00 00:16 Temperature Pulse Rate Respiratory Rate Blood Pressure 161/88 171/99 O2 Sat by Pulse 95 99 Oximetry - Lab Data Result diagrams: 04/12/19 21:59 04/12/19 21:59 Lab Results 04/12/19 04/12/19 04/12/19 Range/Units 21:59 21:59 21:59 WBC 4.9 (4.5-11.0) K/mm3 RBC 4.32 (3.65-5.03) M/mm3 Hgb 11.8 (10.1-14.3) gm/dl Hct 38.0 (30.3-42.9) % MCV 88 (79-97) fl MCH 27 L (28-32) pg MCHC 31 (30-34) % RDW 18.7 H (13.2-15.2) % Plt Count 171 (140-440) K/mm3 Lymph % (Auto) 25.8 (13.4-35.0) % [place] % (Auto) 8.1 H (0.0-7.3) % Eos % (Auto) 0.0 (0.0-4.3) % Baso % (Auto) 1.0 (0.0-1.8) % Lymph # 1.3 (1.2-5.4) K/mm3 [place] # 0.4 (0.0-0.8) K/mm3 Eos # 0.0 (0.0-0.4) K/mm3 Baso # 0.0 (0.0-0.1) K/mm3 Seg Neutrophils % 65.1 (40.0-70.0) % Seg Neutrophils # 3.2 (1.8-7.7) K/mm3 PT 19.4 H (12.2-14.9) Sec. INR 1.68 H (0.87-1.13) APTT 27.7 (24.2-36.6) Sec. Thrombin Time 16.5 (15.1-19.6) Sec. Sodium 144 (137-145) mmol/L Potassium 3.8 (3.6-5.0) mmol/L Chloride 107.1 H (98-107) mmol/L Carbon Dioxide 20 L (22-30) mmol/L Anion Gap 21 mmol/L BUN 16 (7-17) mg/dL Creatinine 0.6 L (0.7-1.2) mg/dL Estimated GFR > 60 ml/min BUN/Creatinine Ratio 27 % Glucose 193 H (65-100) mg/dL POC Glucose (70-105) Calcium 8.9 (8.4-10.2) mg/dL Magnesium (1.7-2.3) mg/dL Total Bilirubin 1.40 H (0.1-1.2) mg/dL AST 27 (5-40) units/L ALT 16 (7-56) units/L Alkaline Phosphatase 74 (35-129) units/L Total Creatine Kinase 93 (30-135) units/L CK-MB (CK-2) 2.3 (0.0-4.0) ng/mL CK-MB (CK-2) Rel Index 2.4 (0-4) Troponin T 0.058 H (0.00-0.029) ng/mL Total Protein 6.2 L (6.3-8.2) g/dL Albumin 3.2 L (3.9-5) g/dL Albumin/Globulin Ratio 1.1 % Triglycerides 116 (2-149) mg/dL Cholesterol 156 (50-199) mg/dL LDL Cholesterol Direct 90 (50-130) mg/dL HDL Cholesterol 55 (40-59) mg/dL Cholesterol/HDL Ratio 2.83 % Urine Color (Yellow) Urine Turbidity (Clear) Urine pH (5.0-7.0) Ur Specific [place] (1.003-1.030) Urine Protein (Negative) mg/dL Urine Glucose (UA) (Negative) mg/dL Urine Ketones (Negative) mg/dL Urine Blood (Negative) Urine Nitrite (Negative) Urine Bilirubin (Negative) Urine Ictotest (Negative) Urine Urobilinogen (<2.0) mg/dL Ur Leukocyte Esterase (Negative) Urine WBC (Auto) (0.0-6.0) /HPF Urine RBC (Auto) (0.0-6.0) /HPF U Epithel Cells (Auto) (0-13.0) /HPF Urine Mucus /HPF Salicylates (2.8-20.0) mg/dL Urine Opiates Screen Urine Methadone Screen Acetaminophen (10.0-30.0) ug/mL Ur Barbiturates Screen Ur Phencyclidine Scrn Ur Amphetamines Screen U Benzodiazepines Scrn Urine Cocaine Screen U Marijuana (THC) Screen Drugs of Abuse Note Plasma/Serum Alcohol (0-0.07) % 04/12/19 04/12/19 04/12/19 Range/Units 21:59 21:59 21:59 WBC (4.5-11.0) K/mm3 RBC (3.65-5.03) M/mm3 Hgb (10.1-14.3) gm/dl Hct (30.3-42.9) % MCV (79-97) fl MCH (28-32) pg MCHC (30-34) % RDW (13.2-15.2) % Plt Count (140-440) K/mm3 Lymph % (Auto) (13.4-35.0) % [place] % (Auto) (0.0-7.3) % Eos % (Auto) (0.0-4.3) % Baso % (Auto) (0.0-1.8) % Lymph # (1.2-5.4) K/mm3 [place] # (0.0-0.8) K/mm3 Eos # (0.0-0.4) K/mm3 Baso # (0.0-0.1) K/mm3 Seg Neutrophils % (40.0-70.0) % Seg Neutrophils # (1.8-7.7) K/mm3 PT (12.2-14.9) Sec. INR (0.87-1.13) APTT (24.2-36.6) Sec. Thrombin Time (15.1-19.6) Sec. Sodium (137-145) mmol/L Potassium (3.6-5.0) mmol/L Chloride (98-107) mmol/L Carbon Dioxide (22-30) mmol/L Anion Gap mmol/L BUN (7-17) mg/dL Creatinine (0.7-1.2) mg/dL Estimated GFR ml/min BUN/Creatinine Ratio % Glucose (65-100) mg/dL POC Glucose (70-105) Calcium (8.4-10.2) mg/dL Magnesium 1.60 L (1.7-2.3) mg/dL Total Bilirubin (0.1-1.2) mg/dL AST (5-40) units/L ALT (7-56) units/L Alkaline Phosphatase (35-129) units/L Total Creatine Kinase 88 (30-135) units/L CK-MB (CK-2) (0.0-4.0) ng/mL CK-MB (CK-2) Rel Index (0-4) Troponin T (0.00-0.029) ng/mL Total Protein (6.3-8.2) g/dL Albumin (3.9-5) g/dL Albumin/Globulin Ratio % Triglycerides (2-149) mg/dL Cholesterol (50-199) mg/dL LDL Cholesterol Direct (50-130) mg/dL HDL Cholesterol (40-59) mg/dL Cholesterol/HDL Ratio % Urine Color (Yellow) Urine Turbidity (Clear) Urine pH (5.0-7.0) Ur Specific [place] (1.003-1.030) Urine Protein (Negative) mg/dL Urine Glucose (UA) (Negative) mg/dL Urine Ketones (Negative) mg/dL Urine Blood (Negative) Urine Nitrite (Negative) Urine Bilirubin (Negative) Urine Ictotest (Negative) Urine Urobilinogen (<2.0) mg/dL Ur Leukocyte Esterase (Negative) Urine WBC (Auto) (0.0-6.0) /HPF Urine RBC (Auto) (0.0-6.0) /HPF U Epithel Cells (Auto) (0-13.0) /HPF Urine Mucus /HPF Salicylates < 0.3 L (2.8-20.0) mg/dL Urine Opiates Screen Urine Methadone Screen Acetaminophen (10.0-30.0) ug/mL Ur Barbiturates Screen Ur Phencyclidine Scrn Ur Amphetamines Screen U Benzodiazepines Scrn Urine Cocaine Screen U Marijuana (THC) Screen Drugs of Abuse Note Plasma/Serum Alcohol < 0.01 (0-0.07) % 04/12/19 04/12/19 04/12/19 Range/Units 21:59 22:06 23:10 WBC (4.5-11.0) K/mm3 RBC (3.65-5.03) M/mm3 Hgb (10.1-14.3) gm/dl Hct (30.3-42.9) % MCV (79-97) fl MCH (28-32) pg MCHC (30-34) % RDW (13.2-15.2) % Plt Count (140-440) K/mm3 Lymph % (Auto) (13.4-35.0) % [place] % (Auto) (0.0-7.3) % Eos % (Auto) (0.0-4.3) % Baso % (Auto) (0.0-1.8) % Lymph # (1.2-5.4) K/mm3 [place] # (0.0-0.8) K/mm3 Eos # (0.0-0.4) K/mm3 Baso # (0.0-0.1) K/mm3 Seg Neutrophils % (40.0-70.0) % Seg Neutrophils # (1.8-7.7) K/mm3 PT (12.2-14.9) Sec. INR (0.87-1.13) APTT (24.2-36.6) Sec. Thrombin Time (15.1-19.6) Sec. Sodium (137-145) mmol/L Potassium (3.6-5.0) mmol/L Chloride (98-107) mmol/L Carbon Dioxide (22-30) mmol/L Anion Gap mmol/L BUN (7-17) mg/dL Creatinine (0.7-1.2) mg/dL Estimated GFR ml/min BUN/Creatinine Ratio % Glucose (65-100) mg/dL POC Glucose 182 H (70-105) Calcium (8.4-10.2) mg/dL Magnesium (1.7-2.3) mg/dL Total Bilirubin (0.1-1.2) mg/dL AST (5-40) units/L ALT (7-56) units/L Alkaline Phosphatase (35-129) units/L Total Creatine Kinase (30-135) units/L CK-MB (CK-2) (0.0-4.0) ng/mL CK-MB (CK-2) Rel Index (0-4) Troponin T (0.00-0.029) ng/mL Total Protein (6.3-8.2) g/dL Albumin (3.9-5) g/dL Albumin/Globulin Ratio % Triglycerides (2-149) mg/dL Cholesterol (50-199) mg/dL LDL Cholesterol Direct (50-130) mg/dL HDL Cholesterol (40-59) mg/dL Cholesterol/HDL Ratio % Urine Color [place] (Yellow) Urine Turbidity Slightly-cloudy (Clear) Urine pH 5.0 (5.0-7.0) Ur Specific [place] 1.032 H (1.003-1.030) Urine Protein 100 mg/dl (Negative) mg/dL Urine Glucose (UA) Neg (Negative) mg/dL Urine Ketones Neg (Negative) mg/dL Urine Blood Lg (Negative) Urine Nitrite Neg (Negative) Urine Bilirubin Sm (Negative) Urine Ictotest Negative (Negative) Urine Urobilinogen 4.0 (<2.0) mg/dL Ur Leukocyte Esterase Neg (Negative) Urine WBC (Auto) 5.0 (0.0-6.0) /HPF Urine RBC (Auto) 56.0 (0.0-6.0) /HPF U Epithel Cells (Auto) 10.0 (0-13.0) /HPF Urine Mucus Few /HPF Salicylates (2.8-20.0) mg/dL Urine Opiates Screen Urine Methadone Screen Acetaminophen < 5.0 L (10.0-30.0) ug/mL Ur Barbiturates Screen Ur Phencyclidine Scrn Ur Amphetamines Screen U Benzodiazepines Scrn Urine Cocaine Screen U Marijuana (THC) Screen Drugs of Abuse Note Plasma/Serum Alcohol (0-0.07) % 04/12/19 Range/Units 23:10 WBC (4.5-11.0) K/mm3 RBC (3.65-5.03) M/mm3 Hgb (10.1-14.3) gm/dl Hct (30.3-42.9) % MCV (79-97) fl MCH (28-32) pg MCHC (30-34) % RDW (13.2-15.2) % Plt Count (140-440) K/mm3 Lymph % (Auto) (13.4-35.0) % [place] % (Auto) (0.0-7.3) % Eos % (Auto) (0.0-4.3) % Baso % (Auto) (0.0-1.8) % Lymph # (1.2-5.4) K/mm3 [place] # (0.0-0.8) K/mm3 Eos # (0.0-0.4) K/mm3 Baso # (0.0-0.1) K/mm3 Seg Neutrophils % (40.0-70.0) % Seg Neutrophils # (1.8-7.7) K/mm3 PT (12.2-14.9) Sec. INR (0.87-1.13) APTT (24.2-36.6) Sec. Thrombin Time (15.1-19.6) Sec. Sodium (137-145) mmol/L Potassium (3.6-5.0) mmol/L Chloride (98-107) mmol/L Carbon Dioxide (22-30) mmol/L Anion Gap mmol/L BUN (7-17) mg/dL Creatinine (0.7-1.2) mg/dL Estimated GFR ml/min BUN/Creatinine Ratio % Glucose (65-100) mg/dL POC Glucose (70-105) Calcium (8.4-10.2) mg/dL Magnesium (1.7-2.3) mg/dL Total Bilirubin (0.1-1.2) mg/dL AST (5-40) units/L ALT (7-56) units/L Alkaline Phosphatase (35-129) units/L Total Creatine Kinase (30-135) units/L CK-MB (CK-2) (0.0-4.0) ng/mL CK-MB (CK-2) Rel Index (0-4) Troponin T (0.00-0.029) ng/mL Total Protein (6.3-8.2) g/dL Albumin (3.9-5) g/dL Albumin/Globulin Ratio % Triglycerides (2-149) mg/dL Cholesterol (50-199) mg/dL LDL Cholesterol Direct (50-130) mg/dL HDL Cholesterol (40-59) mg/dL Cholesterol/HDL Ratio % Urine Color (Yellow) Urine Turbidity (Clear) Urine pH (5.0-7.0) Ur Specific [place] (1.003-1.030) Urine Protein (Negative) mg/dL Urine Glucose (UA) (Negative) mg/dL Urine Ketones (Negative) mg/dL Urine Blood (Negative) Urine Nitrite (Negative) Urine Bilirubin (Negative) Urine Ictotest (Negative) Urine Urobilinogen (<2.0) mg/dL Ur Leukocyte Esterase (Negative) Urine WBC (Auto) (0.0-6.0) /HPF Urine RBC (Auto) (0.0-6.0) /HPF U Epithel Cells (Auto) (0-13.0) /HPF Urine Mucus /HPF Salicylates (2.8-20.0) mg/dL Urine Opiates Screen Presumptive negative Urine Methadone Screen Presumptive negative Acetaminophen (10.0-30.0) ug/mL Ur Barbiturates Screen Presumptive negative Ur Phencyclidine Scrn Presumptive negative Ur Amphetamines Screen Presumptive negative U Benzodiazepines Scrn Presumptive negative Urine Cocaine Screen Presumptive negative U Marijuana (THC) Screen Presumptive negative Drugs of Abuse Note Disclamer Plasma/Serum Alcohol (0-0.07) % Critical care attestation.: If time is entered above; I have spent that time in minutes in the direct care of this critically ill patient, excluding procedure time. ED Disposition Disposition: DC-09 OP ADMIT IP TO THIS HOSP Condition: Fair Referrals: PRIMARY CARE, [Referring] - 3-5 Days
[2019-04-13] MEDS ORDERED: SODIUM CHLORIDE FLUSH SYRINGE 10 ML IV PRN (03:51)
[2019-04-13] MEDS ORDERED: ZOFRAN IV PRN (03:51)
[2019-04-13] MEDS ORDERED: TYLENOL PO PRN (03:51)
[2019-04-13] MEDS ORDERED: PERCOCET 5/325 PO PRN (03:51)
[2019-04-13] MEDS ORDERED: KEPPRA 1,000 MG/NS 0.75% 100ML 1,000 MG/100 ML BAG IV ONE (03:54)
[2019-04-13] MEDS ORDERED: NACL 0.9% 1000 ML 1,000 ML IV SCH (04:00)
[2019-04-13] MEDS ORDERED: BABY ASPIRIN ONE (04:20)
[2019-04-13] MEDS: PEPCID IV SCH ×2 (04:30→11:26)
[2019-04-13] MEDS: SODIUM CHLORIDE FLUSH SYRINGE 10 ML IV SCH ×2 (04:30→11:27)
--- NOTE | 2019-04-13 07:41 | History and Physical Report ---
<LALITHA FRANCES - Last Filed: 04/13/19 07:29> History of Present Illness Date of examination: 04/13/19 Date of admission: 04/13/19 05:07 Chief complaint: seizure disorder History of present illness: Pt is a 68-year-old female PMHx of end stage dementia (started [facility] on 02/2019), seizure (was on Keppra) dysarthria, Depression, HDL, HTN, DM type 2, who was sent to the ER from and elder care facility for c/o seizure activity. P t's daughter in room who provided the medical history states that she was visiting the pt when she noticed tonic activities and blank stares. Patient's daughter reports that she called the pt's nurse to the room and next thing they decided to take the pt to the ER. According the the pt's daughter she started hospice in February 2019, in she found out today that the facility had stopped some of her mother's medication includding the one for seizure(Keppra). Pt was seen in the ER, she appeared anxious, she was non-verbal and unable to answer any questions, pt was evaluated by neurologist in the ER, her VS was stable, her blood glucose was 193, bili 1.40, trop 0.058, pt was restarted on IV Keppra in the ER and admitted for further evaluation and treatment. Past History Past Medical History: hypertension, hyperlipidemia, other (obesity, depression, alzheimer's dementia) Past Surgical History: Other Social history: no significant social history, other (lives in an elder care facility) Family history: no significant family history Medications and Allergies Allergies Allergy/AdvReac Type Severity Reaction Status Date / Time No Known Allergies Allergy Verified 04/12/19 22:29 Home Medications Medication Instructions Recorded Confirmed Last Taken Type Aleve 220 mg PO BID PRN 04/13/19 04/13/19 Unknown History Aspirin 81 mg PO DAILY 04/13/19 04/13/19 Unknown History Memantine 28 mg PO DAILY 04/13/19 04/13/19 Unknown History Metoprolol SUCCINATE ER TAB 50 mg PO DAILY 04/13/19 04/13/19 Unknown History Pantoprazole 40 mg PO DAILY 04/13/19 04/13/19 Unknown History Sertraline HCl 100 mg PO HS 04/13/19 04/13/19 Unknown History Simvastatin 20 mg PO DAILY 04/13/19 04/13/19 Unknown History Megestrol [Megace] 400 mg PO DAILY 30 Days oral.liqd 04/14/19 Unknown Rx levETIRAcetam [Keppra TAB] 750 mg PO BID #60 tablet 04/14/19 Unknown Rx Active Meds: Active Medications Acetaminophen (Tylenol) 650 mg PO Q4H PRN PRN Reason: Pain MILD(1-3)/Fever >100.5/ANDERSON Enoxaparin Sodium (Lovenox) 40 mg SUB-Q QDAY@1000 [facility] Famotidine (Pepcid) 20 mg IV BID [facility] Last Admin: 04/13/19 04:30 Dose: 20 mg Documented by: Sodium Chloride (Nacl 0.9% 1000 Ml) 1,000 mls @ 75 mls/hr IV DIRECT [facility] Levetiracetam 1,000 mg/ (Dextrose) 110 mls @ 400 mls/hr IV Q12HR [facility] Ondansetron HCl (Zofran) 4 mg IV Q8H PRN PRN Reason: Nausea And Vomiting Sodium Chloride (Sodium Chloride Flush Syringe 10 Ml) 10 ml IV BID [facility] Last Admin: 04/13/19 04:30 Dose: 10 ml Documented by: Sodium Chloride (Sodium Chloride Flush Syringe 10 Ml) 10 ml IV PRN PRN PRN Reason: LINE FLUSH Review of Systems ROS unobtainable: due to mental status Exam - Constitutional Vitals: Temp Pulse Resp BP Pulse Ox 98.4 F 74 14 131/87 100 04/13/19 03:00 04/13/19 05:30 04/13/19 05:30 04/13/19 05:30 04/13/19 05:30 General appearance: Present: mild distress - EENT Eyes: Present: EOM intact - Neck Neck: Present: normal ROM - Respiratory Respiratory: bilateral: CTA - Cardiovascular Rhythm: regular Heart Sounds: Present: S1 & S2 - Extremities Extremities: no ischemia, No edema - Abdominal General gastrointestinal: Present: non-tender, non-distended Female genitourinary: Present: deferred - Rectal Rectal Exam: deferred - Integumentary Integumentary: Present: clear, warm, dry - Musculoskeletal Musculoskeletal: strength equal bilaterally - Psychiatric Psychiatric: other (unable to assess) - Neurologic Neurologic: moves all extremities Results - Labs CBC & Chem 7: 04/12/19 21:59 04/12/19 21:59 Labs: Laboratory Last Values WBC 4.9 K/mm3 (4.5-11.0) 04/12/19 21:59 RBC 4.32 M/mm3 (3.65-5.03) 04/12/19 21:59 Hgb 11.8 gm/dl (10.1-14.3) 04/12/19 21:59 Hct 38.0 % (30.3-42.9) 04/12/19 21:59 MCV 88 fl (79-97) 04/12/19 21:59 MCH 27 pg (28-32) L 04/12/19 21:59 MCHC 31 % (30-34) 04/12/19 21:59 RDW 18.7 % (13.2-15.2) H 04/12/19 21:59 Plt Count 171 K/mm3 (140-440) 04/12/19 21:59 Lymph % (Auto) 25.8 % (13.4-35.0) 04/12/19 21:59 [place] % (Auto) 8.1 % (0.0-7.3) H 04/12/19 21:59 Eos % (Auto) 0.0 % (0.0-4.3) 04/12/19 21:59 Baso % (Auto) 1.0 % (0.0-1.8) 04/12/19 21:59 Lymph # 1.3 K/mm3 (1.2-5.4) 04/12/19 21:59 [place] # 0.4 K/mm3 (0.0-0.8) 04/12/19 21:59 Eos # 0.0 K/mm3 (0.0-0.4) 04/12/19 21:59 Baso # 0.0 K/mm3 (0.0-0.1) 04/12/19 21:59 Seg Neutrophils % 65.1 % (40.0-70.0) 04/12/19 21:59 Seg Neutrophils # 3.2 K/mm3 (1.8-7.7) 04/12/19 21:59 PT 19.4 Sec. (12.2-14.9) H 04/12/19 21:59 INR 1.68 (0.87-1.13) H 04/12/19 21:59 APTT 27.7 Sec. (24.2-36.6) 04/12/19 21:59 16.5 Sec. (15.1-19.6) 04/12/19 21:59 Sodium 144 mmol/L (137-145) 04/12/19 21:59 Potassium 3.8 mmol/L (3.6-5.0) 04/12/19 21:59 Chloride 107.1 mmol/L (98-107) H 04/12/19 21:59 Carbon Dioxide 20 mmol/L (22-30) L 04/12/19 21:59 21 mmol/L 04/12/19 21:59 BUN 16 mg/dL (7-17) 04/12/19 21:59 0.6 mg/dL (0.7-1.2) L 04/12/19 21:59 Estimated GFR > 60 ml/min 04/12/19 21:59 27 % 04/12/19 21:59 Glucose 193 mg/dL (65-100) H 04/12/19 21:59 POC Glucose 182 (70-105) H 04/12/19 22:06 Calcium 8.9 mg/dL (8.4-10.2) 04/12/19 21:59 Magnesium 1.60 mg/dL (1.7-2.3) L 04/12/19 21:59 1.40 mg/dL (0.1-1.2) H 04/12/19 21:59 AST 27 units/L (5-40) 04/12/19 21:59 ALT 16 units/L (7-56) 04/12/19 21:59 74 units/L (35-129) 04/12/19 21:59 88 units/L (30-135) 04/12/19 21:59 93 units/L (30-135) 04/12/19 21:59 CK-MB (CK-2) 2.3 ng/mL (0.0-4.0) 04/12/19 21:59 CK-MB (CK-2) Rel Index 2.4 (0-4) 04/12/19 21:59 0.058 ng/mL (0.00-0.029) H 04/12/19 21:59 6.2 g/dL (6.3-8.2) L 04/12/19 21:59 3.2 g/dL (3.9-5) L 04/12/19 21:59 1.1 % 04/12/19 21:59 Triglycerides 116 mg/dL (2-149) 04/12/19 21:59 Cholesterol 156 mg/dL (50-199) 04/12/19 21:59 90 mg/dL (50-130) 04/12/19 21:59 55 mg/dL (40-59) 04/12/19 21:59 2.83 % 04/12/19 21:59 [place]is (Yellow) 04/12/19 23:10 Slightly-cloudy (Clear) 04/12/19 23:10 5.0 (5.0-7.0) 04/12/19 23:10 Ur Specific [place] 1.032 (1.003-1.030) H 04/12/19 23:10 100 mg/dl mg/dL (Negative) 04/12/19 23:10 Neg mg/dL (Negative) 04/12/19 23:10 Neg mg/dL (Negative) 04/12/19 23:10 Lg (Negative) 04/12/19 23:10 Neg (Negative) 04/12/19 23:10 Sm (Negative) 04/12/19 23:10 Negative (Negative) 04/12/19 23:10 4.0 mg/dL (<2.0) 04/12/19 23:10 Ur Leukocyte Esterase Neg (Negative) 04/12/19 23:10 5.0 /HPF (0.0-6.0) 04/12/19 23:10 56.0 /HPF (0.0-6.0) 04/12/19 23:10 U Epithel Cells (Auto) 10.0 /HPF (0-13.0) 04/12/19 23:10 Few /HPF 04/12/19 23:10 Salicylates < 0.3 mg/dL (2.8-20.0) L 04/12/19 21:59 Presumptive negative 04/12/19 23:10 Presumptive negative 04/12/19 23:10 Acetaminophen < 5.0 ug/mL (10.0-30.0) L 04/12/19 21:59 Ur Barbiturates Screen Presumptive negative 04/12/19 23:10 Ur Phencyclidine Scrn Presumptive negative 04/12/19 23:10 Ur Amphetamines Screen Presumptive negative 04/12/19 23:10 U Benzodiazepines Scrn Presumptive negative 04/12/19 23:10 Presumptive negative 04/12/19 23:10 U Marijuana (THC) Screen Presumptive negative 04/12/19 23:10 Disclamer 04/12/19 23:10 Plasma/Serum Alcohol < 0.01 % (0-0.07) 04/12/19 21:59 Assessment and Plan Assessment and plan: 1. End stage dementia (started [facility] on 02/2019) 2. Dysarthria 3. H/o Depression 4. HDL 5. HTN 6. DM type 2 7. Transaminitis (Likely due to keppra) 8. Hypomagnesemia 9. Coagulopathy 10. Elevated trop (may be due to seizure activity) Plan: Admit to med telemetry for seizure activities Tele Neurology was consulted in the ER Continue neuro check Seizure precaution Pt is in hospice (per daughter) Continue IV Keppra for seizure Replace mg Consult case management for DC planning Resume home meds DNR (On Hospice) Plan discussed with patient and family in room, voiced understanding Pt's condition and plan of care d/w Dr Dewey Advance Directives: Yes VTE prophylaxis?: Mechanical Plan of care discussed with patient/family: Yes <KESHA DEWEY - Last Filed: 04/14/19 21:32> History of Present Illness Date of admission: 04/13/19 05:07 Exam - Constitutional Vitals: Temp Pulse Resp BP Pulse Ox 97.6 F 73 20 130/79 100 04/14/19 11:04 04/14/19 11:04 04/14/19 11:04 04/14/19 11:04 04/14/19 11:04 Results - Labs CBC & Chem 7: 04/14/19 04:49 04/14/19 04:49 Labs: Laboratory Last Values WBC 5.2 K/mm3 (4.5-11.0) 04/14/19 04:49 RBC 4.19 M/mm3 (3.65-5.03) 04/14/19 04:49 Hgb 11.4 gm/dl (10.1-14.3) 04/14/19 04:49 Hct 36.5 % (30.3-42.9) 04/14/19 04:49 MCV 87 fl (79-97) 04/14/19 04:49 MCH 27 pg (28-32) L 04/14/19 04:49 MCHC 31 % (30-34) 04/14/19 04:49 RDW 17.9 % (13.2-15.2) H 04/14/19 04:49 Plt Count 154 K/mm3 (140-440) 04/14/19 04:49 Lymph % (Auto) 26.1 % (13.4-35.0) 04/14/19 04:49 [place] % (Auto) 6.6 % (0.0-7.3) 04/14/19 04:49 Eos % (Auto) 0.5 % (0.0-4.3) 04/14/19 04:49 Baso % (Auto) 1.3 % (0.0-1.8) 04/14/19 04:49 Lymph # 1.4 K/mm3 (1.2-5.4) 04/14/19 04:49 [place] # 0.3 K/mm3 (0.0-0.8) 04/14/19 04:49 Eos # 0.0 K/mm3 (0.0-0.4) 04/14/19 04:49 Baso # 0.1 K/mm3 (0.0-0.1) 04/14/19 04:49 Seg Neutrophils % 65.5 % (40.0-70.0) 04/14/19 04:49 Seg Neutrophils # 3.4 K/mm3 (1.8-7.7) 04/14/19 04:49 PT 19.4 Sec. (12.2-14.9) H 04/12/19 21:59 INR 1.68 (0.87-1.13) H 04/12/19 21:59 APTT 27.7 Sec. (24.2-36.6) 04/12/19 21:59 16.5 Sec. (15.1-19.6) 04/12/19 21:59 Sodium 146 mmol/L (137-145) H 04/14/19 04:49 Potassium 3.2 mmol/L (3.6-5.0) L 04/14/19 04:49 Chloride 107.8 mmol/L (98-107) H 04/14/19 04:49 Carbon Dioxide 24 mmol/L (22-30) 04/14/19 04:49 17 mmol/L 04/14/19 04:49 BUN 17 mg/dL (7-17) 04/14/19 04:49 0.6 mg/dL (0.7-1.2) L 04/14/19 04:49 Estimated GFR > 60 ml/min 04/14/19 04:49 28 % 04/14/19 04:49 Glucose 195 mg/dL (65-100) H 04/14/19 04:49 POC Glucose 182 (70-105) H 04/12/19 22:06 Calcium 8.8 mg/dL (8.4-10.2) 04/14/19 04:49 Magnesium 1.60 mg/dL (1.7-2.3) L 04/12/19 21:59 1.00 mg/dL (0.1-1.2) 04/14/19 04:49 AST 22 units/L (5-40) 04/14/19 04:49 ALT 15 units/L (7-56) 04/14/19 04:49 66 units/L (35-129) 04/14/19 04:49 88 units/L (30-135) 04/12/19 21:59 93 units/L (30-135) 04/12/19 21:59 CK-MB (CK-2) 2.3 ng/mL (0.0-4.0) 04/12/19 21:59 CK-MB (CK-2) Rel Index 2.4 (0-4) 04/12/19 21:59 0.061 ng/mL (0.00-0.029) H 04/14/19 14:04 5.8 g/dL (6.3-8.2) L 04/14/19 04:49 3.0 g/dL (3.9-5) L 04/14/19 04:49 1.1 % 04/14/19 04:49 Triglycerides 116 mg/dL (2-149) 04/12/19 21:59 Cholesterol 156 mg/dL (50-199) 04/12/19 21:59 90 mg/dL (50-130) 04/12/19 21:59 55 mg/dL (40-59) 04/12/19 21:59 2.83 % 04/12/19 21:59 Maris (Yellow) 04/12/19 23:10 Slightly-cloudy (Clear) 04/12/19 23:10 5.0 (5.0-7.0) 04/12/19 23:10 Ur Specific [place] 1.032 (1.003-1.030) H 04/12/19 23:10 100 mg/dl mg/dL (Negative) 04/12/19 23:10 Neg mg/dL (Negative) 04/12/19 23:10 Neg mg/dL (Negative) 04/12/19 23:10 Lg (Negative) 04/12/19 23:10 Neg (Negative) 04/12/19 23:10 Sm (Negative) 04/12/19 23:10 Negative (Negative) 04/12/19 23:10 4.0 mg/dL (<2.0) 04/12/19 23:10 Ur Leukocyte Esterase Neg (Negative) 04/12/19 23:10 5.0 /HPF (0.0-6.0) 04/12/19 23:10 56.0 /HPF (0.0-6.0) 04/12/19 23:10 U Epithel Cells (Auto) 10.0 /HPF (0-13.0) 04/12/19 23:10 Few /HPF 04/12/19 23:10 Salicylates < 0.3 mg/dL (2.8-20.0) L 04/12/19 21:59 Presumptive negative 04/12/19 23:10 Presumptive negative 04/12/19 23:10 Acetaminophen < 5.0 ug/mL (10.0-30.0) L 04/12/19 21:59 Ur Barbiturates Screen Presumptive negative 04/12/19 23:10 Ur Phencyclidine Scrn Presumptive negative 04/12/19 23:10 Ur Amphetamines Screen Presumptive negative 04/12/19 23:10 U Benzodiazepines Scrn Presumptive negative 04/12/19 23:10 Presumptive negative 04/12/19 23:10 U Marijuana (THC) Screen Presumptive negative 04/12/19 23:10 Disclamer 04/12/19 23:10 Plasma/Serum Alcohol < 0.01 % (0-0.07) 04/12/19 21:59 Assessment and Plan Assessment and plan: 68-year-old woman with Hyperlipidemia, seizure, dementia, coronary artery disease, hypertension, diabetes, and nonverbal was brought to the emergency room because of jerking movements and her eyes rolled back in her head. The patient has been off Keppra for unknown time. History is per the daughter at bedside. Status post loading dose of Keppra, continue Keppra and consult neurology
[2019-04-13] MEDS ORDERED: MAGNESIUM SULFATE 2GM/50ML 2 GM/50 ML BAG IV ONE (09:30)
[2019-04-13] MEDS ORDERED: LOVENOX SUB-Q SCH (10:00)
[2019-04-13] MEDS: KEPPRA 1,000 MG in D5W 100 ML IV SCH ×2 (11:19→22:23)
[2019-04-13] MEDS: LOVENOX SUB-Q SCH (11:26)
[2019-04-13] MEDS ORDERED: ALEVE 220 MG PO PRN (13:07)
--- NOTE | 2019-04-13 13:17 | Consultation ---
Past History Past Medical History: hypertension, hyperlipidemia, other (obesity, depression, alzheimer's dementia) Past Surgical History: Other Social history: no significant social history, other (lives in an elder care facility) Family history: no significant family history Medications and Allergies Allergies Allergy/AdvReac Type Severity Reaction Status Date / Time No Known Allergies Allergy Verified 04/12/19 22:29 Home Medications Medication Instructions Recorded Confirmed Last Taken Type Aleve 220 mg PO BID PRN 04/13/19 04/13/19 Unknown History Aspirin 81 mg PO DAILY 04/13/19 04/13/19 Unknown History Memantine 28 mg PO DAILY 04/13/19 04/13/19 Unknown History Metoprolol SUCCINATE ER TAB 50 mg PO DAILY 04/13/19 04/13/19 Unknown History Pantoprazole 40 mg PO DAILY 04/13/19 04/13/19 Unknown History Sertraline HCl 100 mg PO HS 04/13/19 04/13/19 Unknown History Simvastatin 20 mg PO DAILY 04/13/19 04/13/19 Unknown History Active Meds: Active Medications Acetaminophen (Tylenol) 650 mg PO Q4H PRN PRN Reason: Pain MILD(1-3)/Fever >100.5/ANDERSON Enoxaparin Sodium (Lovenox) 40 mg SUB-Q QDAY@1000 [facility] Last Admin: 04/13/19 11:26 Dose: 40 mg Documented by: Famotidine (Pepcid) 20 mg IV BID [facility] Last Admin: 04/13/19 11:26 Dose: 20 mg Documented by: Sodium Chloride (Nacl 0.9% 1000 Ml) 1,000 mls @ 75 mls/hr IV DIRECT [facility] Last Admin: 04/13/19 08:15 Dose: 75 mls/hr Documented by: Levetiracetam 1,000 mg/ (Dextrose) 110 mls @ 400 mls/hr IV Q12HR [facility] Last Admin: 04/13/19 11:19 Dose: 400 mls/hr Documented by: Ondansetron HCl (Zofran) 4 mg IV Q8H PRN PRN Reason: Nausea And Vomiting Sodium Chloride (Sodium Chloride Flush Syringe 10 Ml) 10 ml IV BID [facility] Last Admin: 04/13/19 11:27 Dose: 10 ml Documented by: Sodium Chloride (Sodium Chloride Flush Syringe 10 Ml) 10 ml IV PRN PRN PRN Reason: LINE FLUSH Physical Examination - Vital Signs Vital Signs: Vital Signs Temp 98.6 F 04/12/19 21:47 Results - Laboratory Findings CBC and BMP: 04/12/19 21:59 04/12/19 21:59 Abnormal Lab Findings: Abnormal Labs 04/12/19 04/12/19 04/12/19 21:59 21:59 21:59 MCH 27 L RDW 18.7 H [place] % (Auto) 8.1 H PT 19.4 H INR 1.68 H Chloride 107.1 H Carbon Dioxide 20 L Creatinine 0.6 L Glucose 193 H POC Glucose Magnesium Total Bilirubin 1.40 H Troponin T 0.058 H Total Protein 6.2 L Albumin 3.2 L Ur Specific [place] Salicylates Acetaminophen 04/12/19 04/12/19 04/12/19 21:59 21:59 21:59 MCH RDW [place] % (Auto) PT INR Chloride Carbon Dioxide Creatinine Glucose POC Glucose Magnesium 1.60 L Total Bilirubin Troponin T Total Protein Albumin Ur Specific [place] Salicylates < 0.3 L Acetaminophen < 5.0 L 04/12/19 04/12/19 22:06 23:10 MCH RDW [place] % (Auto) PT INR Chloride Carbon Dioxide Creatinine Glucose POC Glucose 182 H Magnesium Total Bilirubin Troponin T Total Protein Albumin Ur Specific [place] 1.032 H Salicylates Acetaminophen Assessment and Plan 68 YR OLF FEMALE WITH HIST OF HTN,DM AND 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 PATIENT ALSO HAS A HIST OF SEIZURE AND HAS BEEN ON KEPPRA 500 MG BID. PATIENT WAS NOTED BY HER DAUGHTER IN THE EVENING OF 04/12/2019.WHEN SHE WAS VISITING HER THAT THE PATIENT ROLLED HER EYES AND DID NOT COMMUNICATE IN HER USUAL WAY WITH A SMILE. PATIENT CAN NOT TALK DUE TO HER ADVANCED DEMENTIA.EMS WAS CALLED WHO ASSESSED THE PATIENT TO HAVE RT SIDED WEAKNESS WITH LEFT FACIAL DROOP.PATIENT WAS EVALUATED BY TELE NEUROLOGIST IN THE ER AND TPA WAS NOT GIVEN BECAUSE OF OUT OF WINDOW. CT SCAN DID NOT SHOW ANY HEMORRHAGE OR INFARCT, CT ANGIO DID NOT SHOW ANY ABNORMALITIES EXCEPT FOR ATHEREMATOUS PLAQUE IN THE LEFT VERTEBRAL ARTERY.PATIENT WAS ADMITTED FOR FURTHER WORK UP AND CARE. ISSUE WAS RAISED BY THE DAUGHTER ABOUT [facility] DISCONTINUING KEPPRA, HOWEVER [facility] STATED THAT SHE WAS GETTING HER MEDICATION. PHYSICAL EXAMINATION' IN NO ACUTE DISTRESS.PATIENT IS VERBALLY UNRESPONSIVE. MAKES EYE CONTACT AND AT TIMES SMILES WHEN HER NAME IS CALLED, FOLLOWS SIMPLE COMMAND SPORADICALLY. HEART-NORMAL RATE AND RYTHM, CAROTIDS-BOTH PALPABLE, CRANIAL NERVES- PUPILS REACT TO LIGHT AND ACCOMMODATION.NO FACIAL ASYMMETRY. OTHER CRANIAL NERVES ARE WITH IN NORMAL LIMIT WITH IN LIMITATION OF EXAMINATION. MOTOR. MOVES ALL FOUR EXTREMITIES, MILD CONTRACTURE ON THE RT UPPER EXTREMITY, PROPBABLY AND OLD FINDING FROM ADVANCED DEMENTIA. REFLEXES, - RELATIVELY BRISK IN ALL FOUR EXTREMITIES GIVEN HER MUSCLE MASS, HOWEVER NO ASYMMTERY WAS DETECTED.BILATERAL EQUIVOCAL TOES. SENSORY- GROSSLY WITH IN NORMAL LIMIT. IMPRESSION. 1. PATIENT SEEMED TO HAVE RECURRENCE OF SEIZURE, 2, NO EVIDENCE TO SUPPORT STROKE ON NEURO EXAMINATION AND CT SCAN FINDINGS. RECOMMEND. 1. MRI OF BRAIN WITHOUT CONTRAST 2. PLEASE INCREASE KEPPRA TO 750 MG PO BID. 3. CONTINUE ASPIRIN 81 MG PO QD. 4. PLEASE CHECK LIPID PROFILE AND IF INDICATED WILL START HER ON STATIN, OTHERWISE WILL NOT GIVE STATIN STATIN CAN WORSEN DEMENTIA.
[2019-04-13] MEDS ORDERED: NAPROSYN PO PRN (14:39)
--- NOTE | 2019-04-13 17:25 | Event Note ---
Date: 04/13/19 patient seen and examined presented with seizure, low Mg] started on keppra, replete Mg, consulted neuro - plan for MRI brain discussed with daughter at bedside
[2019-04-13] MEDS ORDERED: APRESOLINE IV PRN (17:42)
[2019-04-13] MEDS: TOPROL XL PO SCH (17:44)
[2019-04-13] MEDS: PROTONIX PO SCH (17:44)
[2019-04-13] MEDS: D5NS 1,000 ML IV SCH (18:49)
[2019-04-13] MEDS ORDERED: HALDOL IV PRN (20:53)
[2019-04-13] MEDS ORDERED: HALDOL IM PRN (21:21)
[2019-04-13] MEDS ORDERED: PRAVACHOL PO SCH (22:00)
[2019-04-13] MEDS ORDERED: ZOLOFT PO SCH (22:00)
[2019-04-13] MEDS ORDERED: SERTRALINE HCL 100 MG PO SCH (22:00)
[2019-04-14] MEDS: NAMENDA PO SCH ×2 (00:20→10:53)
[2019-04-14] MEDS: SODIUM CHLORIDE FLUSH SYRINGE 10 ML IV SCH ×2 (00:20→13:20)
[2019-04-14] MEDS: D5NS 1,000 ML IV SCH (04:51)
[2019-04-14 05:16] LABS: Basophils # (Auto) 0.1 K/mm3 (0.0-0.1); Basophils % (Auto) 1.3 % (0.0-1.8); Eosinophils % (Auto) 0.5 % (0.0-4.3); Hematocrit 36.5 % (30.3-42.9); Hemoglobin 11.4 gm/dl (10.1-14.3); Lymphocytes # (Auto) 1.4 K/mm3 (1.2-5.4); Lymphocytes % (Auto) 26.1 % (13.4-35.0); Mean Corpuscular HGB Conc 31 % (30-34); Mean Corpuscular Volume 87 fl (79-97); Monocytes # (Auto) 0.3 K/mm3 (0.0-0.8); Monocytes % (Auto) 6.6 % (0.0-7.3); Platelet Count 154 K/mm3 (140-440); Red Blood Count 4.19 M/mm3 (3.65-5.03); Red Cell Distribution Width 17.9 % (13.2-15.2)
[2019-04-14 05:43] LABS: Alanine Aminotransferase 15 units/L (7-56); BUN/Creatinine Ratio 28; Blood Urea Nitrogen 17 mg/dL (7-17); Calcium 8.8 mg/dL (8.4-10.2); Hemolysis Index 6
[2019-04-14] MEDS ORDERED: K-DUR PO ONE (09:00)
[2019-04-14] MEDS ORDERED: MEMANTINE 28 MG PO SCH (10:00)
[2019-04-14] MEDS ORDERED: NON-FORMULARY (Simvastatin 20 MG) PO SCH (10:00)
[2019-04-14] MEDS ORDERED: NON-FORMULARY (Aspirin 81 MG) PO SCH (10:00)
[2019-04-14] MEDS ORDERED: NON-FORMULARY (Pantoprazole 40 MG) PO SCH (10:00)
[2019-04-14] MEDS ORDERED: NON-FORMULARY (Metoprolol Succinate Er Tab 50 MG) PO SCH (10:00)
[2019-04-14] MEDS ORDERED: HALFPRIN EC PO SCH (10:00)
[2019-04-14] MEDS: KEPPRA 1,000 MG in D5W 100 ML IV SCH (10:04)
--- NOTE | 2019-04-14 10:17 | Discharge Summary ---
Providers - Providers Date of Admission: 04/13/19 05:07 Date of discharge: 04/14/19 Attending physician: JAVED SALDAÑA 04/12/19 Consult to Physician [CONS] Stat Comment: Consulting Provider: TJ العلي Physician Instructions: Reason For Exam: suspected stroke 04/13/19 04:59 Speech Therapy Evaluation and Treat [CONS] Stat Reason For Exam: altered mental status 04/13/19 06:57 Consult to Physician [CONS] Routine Comment: Consulting Provider: TYLER ORTEGA Physician Instructions: Reason For Exam: sz 04/14/19 08:34 Consult to Physician [CONS] Routine Comment: Consulting Provider: MICHELA YOUNG Physician Instructions: Reason For Exam: elevated troponin Primary care physician: MURPHY WEATHERS Hospitalization Condition: Fair Pertinent studies: CXR Head CT Head CTA/neck CTA Hospital course: Patient is a 68-year old woman with Dementia, nonverbal, wheelchair bound was se nt from the [facility] facility and admitted with suspected seizure. Neurology evaluation and workup is in progress. A cardiology consultation has been requested for mild elevation of troponin. Family member at bedside reports the patient has a cardiac history of CHF and is followed by [facility] in [place]. Family member is unclear of prior cardiac workup. Chest x-ray reports cardiomegaly with small bilateral pleural effusion. 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 There are no acute ischemic changes. In the absence of cardiac symptoms, no further cardiac workup is indicated. On discharge, patient is recommended to maintain routine follow-up with her primary core driller helper. Discharge diagnosis: End stage dementia (On [facility] care since 02/2019) Breakthrough seizure H/o Depression HDL HTN DM type 2 Transaminitis (Likely due to dehydration - trended down) Hypomagnesemia/hypokalemia, repleted Coagulopathy, stable Elevated trop (may be due to seizure activity) - medical Mx, 2d echo showed preserved EF Moderate PCM - from poor oral intake due to dementia Disposition: DC-50 TO HOSPICE (HOME) Time spent for discharge: 34 minutes Core Measure Documentation - Palliative Care Palliative Care/ Comfort Measures: Not Applicable - Core Measures Any of the following diagnoses?: none Exam - Constitutional Vitals: Temp Pulse Resp BP Pulse Ox 98.4 F 66 18 141/79 100 04/14/19 05:37 04/14/19 05:37 04/14/19 05:37 04/14/19 05:37 04/14/19 05:37 General appearance: Present: no acute distress - EENT Eyes: Present: PERRL ENT: hearing intact, clear oral mucosa - Neck Neck: Present: supple, normal ROM - Respiratory Respiratory effort: normal Respiratory: bilateral: CTA - Cardiovascular Heart Sounds: Present: S1 & S2. Absent: rub, click - Extremities Extremities: pulses symmetrical, No edema Peripheral Pulses: within normal limits - Abdominal General gastrointestinal: Present: soft, non-tender, non-distended, normal bowel sounds - Integumentary Integumentary: Present: clear, warm, dry - Musculoskeletal Musculoskeletal: generalized weakness, other (nonverbal) - Psychiatric Psychiatric: no appropriate mood/affect, no intact judgment & insight, no memory intact - Neurologic Neurologic: no focal deficits, moves all extremities, no gait normal Plan Activity: up only with assistance Weight Bearing Status: Non-Weight Bearing Diet: advance as tolerated Follow up with: PRIMARY CARE, [Referring] - 3-5 Days Prescriptions: levETIRAcetam [Keppra TAB] 750 mg PO BID #60 tablet Megestrol [Megace] 400 mg PO DAILY 30 Days oral.liqd
[2019-04-14] MEDS: KCL 10MEQ/100ML 10 MEQ/100 ML BAG IV SCH ×3 (10:27→15:27)
[2019-04-14] MEDS: TOPROL XL PO SCH (10:53)
[2019-04-14] MEDS: PROTONIX PO SCH (10:53)
[2019-04-14] MEDS: LOVENOX SUB-Q SCH (11:01)
--- NOTE | 2019-04-14 11:28 | Consultation ---
History of Present Illness Consult date: 04/14/19 Consult reason: elevated troponin History of present illness: Patient is a 68-year old woman with Dementia and is nonverbal. Patient was sent from the group home facility and admitted with suspected seizure. Neurology evaluation and workup is in progress. A cardiology consultation has been requested for mild elevation of troponin. Family member at bedside reports the patient has a cardiac history of CHF and is followed by [facility] cardiology in [place]. Family member is unclear of prior cardiac workup. Chest x-ray reports cardiomegaly with small bilateral pleural effusion. 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 Past History Past Medical History: hypertension, hyperlipidemia, other (obesity, depression, alzheimer's dementia) Past Surgical History: Other Social history: no significant social history, other (lives in an elder care facility) Family history: no significant family history Medications and Allergies Allergies Allergy/AdvReac Type Severity Reaction Status Date / Time No Known Allergies Allergy Verified 04/12/19 22:29 Home Medications Medication Instructions Recorded Confirmed Last Taken Type Aleve 220 mg PO BID PRN 04/13/19 04/13/19 Unknown History Aspirin 81 mg PO DAILY 04/13/19 04/13/19 Unknown History Memantine 28 mg PO DAILY 04/13/19 04/13/19 Unknown History Metoprolol SUCCINATE ER TAB 50 mg PO DAILY 04/13/19 04/13/19 Unknown History Pantoprazole 40 mg PO DAILY 04/13/19 04/13/19 Unknown History Sertraline HCl 100 mg PO HS 04/13/19 04/13/19 Unknown History Simvastatin 20 mg PO DAILY 04/13/19 04/13/19 Unknown History Megestrol [Megace] 400 mg PO DAILY 30 Days oral.liqd 04/14/19 Unknown Rx levETIRAcetam [Keppra TAB] 750 mg PO BID #60 tablet 04/14/19 Unknown Rx Active Meds: Active Medications Acetaminophen (Tylenol) 650 mg PO Q4H PRN PRN Reason: Pain MILD(1-3)/Fever >100.5/ANDERSON Aspirin (Halfprin Ec) 81 mg PO QDAY [facility] Last Admin: 04/14/19 10:52 Dose: 81 mg Documented by: Enoxaparin Sodium (Lovenox) 40 mg SUB-Q QDAY@1000 [facility] Last Admin: 04/14/19 11:01 Dose: 40 mg Documented by: Haloperidol Lactate (Haldol) 5 mg IM Q6H PRN PRN Reason: Agitation Hydralazine HCl (Apresoline) 5 mg IV Q30MIN PRN PRN Reason: Hypertension Last Admin: 04/13/19 18:34 Dose: 5 mg Documented by: Levetiracetam 1,000 mg/ (Dextrose) 110 mls @ 400 mls/hr IV Q12HR [facility] Last Admin: 04/14/19 10:04 Dose: 400 mls/hr Documented by: Dextrose/Sodium Chloride (D5ns) 1,000 mls @ 75 mls/hr IV DIRECT [facility] Last Admin: 04/14/19 04:51 Dose: 75 mls/hr Documented by: Potassium Chloride (Kcl 10meq/100ml) 10 meq in 100 mls @ 100 mls/hr IV Q1H [facility] Stop: 04/14/19 12:59 Last Admin: 04/14/19 10:27 Dose: 100 mls/hr Documented by: Memantine (Namenda) 10 mg PO Q12HR [facility] Last Admin: 04/14/19 10:53 Dose: 10 mg Documented by: Metoprolol Succinate (Toprol Xl) 50 mg PO QDAY [facility] Last Admin: 04/14/19 10:53 Dose: 50 mg Documented by: Naproxen (Naprosyn) 250 mg PO Q12H PRN PRN Reason: Pain, Mild (1-3) Last Admin: 04/14/19 10:54 Dose: 250 mg Documented by: Ondansetron HCl (Zofran) 4 mg IV Q8H PRN PRN Reason: Nausea And Vomiting Pantoprazole Sodium (Protonix) 40 mg PO DAILY [facility] Last Admin: 04/14/19 10:53 Dose: 40 mg Documented by: Pravastatin Sodium (Pravachol) 40 mg PO QHS [facility] Last Admin: 04/14/19 00:20 Dose: Not Given Documented by: Sertraline HCl (Zoloft) 100 mg PO QHS [facility] Last Admin: 04/14/19 00:20 Dose: Not Given Documented by: Sodium Chloride (Sodium Chloride Flush Syringe 10 Ml) 10 ml IV BID [facility] Last Admin: 04/14/19 00:20 Dose: Not Given Documented by: Sodium Chloride (Sodium Chloride Flush Syringe 10 Ml) 10 ml IV PRN PRN PRN Reason: LINE FLUSH Physical Examination Vital Signs Temp 98.6 F 04/12/19 21:47 General appearance: no acute distress Cardiac: Positive: Reg Rate and Rhythm Results 04/14/19 04:49 04/14/19 04:49 Cardiac Enzymes 04/14/19 Range/Units 04:49 AST 22 (5-40) units/L CBC 04/14/19 Range/Units 04:49 WBC 5.2 (4.5-11.0) K/mm3 RBC 4.19 (3.65-5.03) M/mm3 Hgb 11.4 (10.1-14.3) gm/dl Hct 36.5 (30.3-42.9) % Plt Count 154 (140-440) K/mm3 Lymph # 1.4 (1.2-5.4) K/mm3 [place] # 0.3 (0.0-0.8) K/mm3 Eos # 0.0 (0.0-0.4) K/mm3 Baso # 0.1 (0.0-0.1) K/mm3 Comprehensive Metabolic Panel 04/14/19 Range/Units 04:49 Sodium 146 H (137-145) mmol/L Potassium 3.2 L (3.6-5.0) mmol/L Chloride 107.8 H (98-107) mmol/L Carbon Dioxide 24 (22-30) mmol/L BUN 17 (7-17) mg/dL Creatinine 0.6 L (0.7-1.2) mg/dL Glucose 195 H (65-100) mg/dL Calcium 8.8 (8.4-10.2) mg/dL AST 22 (5-40) units/L ALT 15 (7-56) units/L Alkaline Phosphatase 66 (35-129) units/L Total Protein 5.8 L (6.3-8.2) g/dL Albumin 3.0 L (3.9-5) g/dL Assessment and Plan Seizure Hypertension Diabetes Dementia Elevated troponin, nonspecific Hypokalemia
[2019-04-14 13:08] VITALS: BP 130/79
== END 2019-04-14 18:40 | disposition hospice, home (50) | DRG 101 ==
LOC: ED 21:43 → 3A 04-13 05:07
PROVIDERS: ADMIT Internal Medicine; ATTEND Internal Medicine
DX: G40.909 Epilepsy, unspecified, not intractable, without status epilepticus (principal); D68.9 Coagulation defect, unspecified; E44.0 Moderate protein-calorie malnutrition; F03.90 Unspecified dementia, unspecified severity, without behavioral disturbance, psychotic disturbance, mood disturbance, and anxiety; E11.8 Type 2 diabetes mellitus with unspecified complications; R47.1 Dysarthria and anarthria; I50.9 Heart failure, unspecified; E66.9 Obesity, unspecified; F32.9 Major depressive disorder, single episode, unspecified; E87.6 Hypokalemia; R74.0 Nonspecific elevation of levels of transaminase and lactic acid dehydrogenase [LDH]; E86.0 Dehydration; E83.42 Hypomagnesemia; Z66 Do not resuscitate; E78.5 Hyperlipidemia, unspecified; Z99.3 Dependence on wheelchair; Z68.35 Body mass index [BMI] 35.0-35.9, adult; Z79.82 Long term (current) use of aspirin; Z79.899 Other long term (current) drug therapy
CPT/HCPCS: 36415; 70450; 70496; 70498; 71045; 80053; 80061; 80307; 80320; 81001; 82550; 82553; 82962; 83735; 84484; 85025; 85610; 85670; 85730; 93005; 93010; 93306; G0378; G0480; J0360; J1650; J1885; J1953; J3475; J3480; J7030; J7040; J7042; Q9967